=== PATIENT | male | born 1995 | race Caucasian/White ===

== ENCOUNTER 2025-01-13 21:06 | Emergency (ER) | payer OTHER, SELFPAY ==
[2025-01-13 21:07] VITALS: BP 156/98; PULSE 79; RESP 15; TEMP 36.4; O2SAT 97; BMI 25.9
[2025-01-13] MEDS: Lidocaine 2% Viscous15 ML UDC 15 ML PO (21:46)
--- OUTSIDE RECORDS SUMMARY | 2025-01-13 21:49 | XMS RPT_ITS | CCD ---
Author Organization [facility] Allergies Allergy Classification Reported Allergen(s) Allergy Type Date of Onset Reaction(s) Facility (1 source) Penicillin; Translations: [penicillins] Drug Allergy Nausea [facility] Medications Current Medications Medication Drug Class(es) Dates Sig (Normalized) Sig (Original) ibuprofen 200 mg oral tablet (1 source) Nonsteroidal Anti-inflammatory Drug Start: 03-25-2019 ibuprofen 200 mg oral tablet Dose : 400 mg = 2 tab(s), Oral, q6h, PRN for pain, Take with food or milk., 0 Refill(s) Start Date: 03/25/19 Status: Ordered Medication Dispense Status: Completed Total Allowed Fills: 1 Fills Dispensed: 0 Problems Problem Classification Problem Date Documented Da te Episodic/Chronic Asthma (1 source) Asthma 03-25-2019 Chronic Intracranial injury (1 source) 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 Other gastrointestinal disorders (1 source) Dysphagia; Translations: [Dysphagia, unspecified] Onset: 01-12-2025 Episodic Encounters Encounter Date Encounter Type Care Provider Facility Start: 01-12-2025 End: 01-12-2025 Emergency department patient visit JUNAID GALICIA MD [facility] Procedures Date Procedure Procedure Detail Performing Clinician Start: 05-22-2013 Esophagogastroduodenoscopy JUNAID GALICIA MD Comment on above: Won Sierra Start: 05-07-2012 [facility] JUNAID CELAYA MD Comment on above: EDF 60-65% Payers Date Payer Category Payer Private Health Insurance [id number] Social History Date Type Detail Facility Start: 03-25-2019 Tobacco smoking status Never s moked tobacco (finding) [facility] Sexual Orientation [facility] Start: 03-20-2013 Sex Male (finding) [facility] Discharge instructions 01-12-2025 Note Date & Type Note Facility 01-12-2025 Hospital Discharg e instructions Patient Education 01/12/2025 11:42:18 Treating Dysphagia Treating Dysphagia Blend foods to make them easier to eat. A medical evaluation helps your healthcare provider find the cause of your trouble swallowing, or dysphagia. Your evaluation may include a medical history and some special tests. Your provider will make a treatment plan based on the results of your evaluation. You may need to take medicines. In some cases, your provider may suggest a procedure to stretch or widen your esophagus (esophageal dilation). Or your provider may suggest surgery. What you can do To help control dysphagia, follow your treatment plan. Take all medicines as directed. You also can help lessen your dysphagia symptoms by being careful about what and how you eat. Medicines You may need medicines, such as those that: Reduce or neutralize stomach acids Control esophagus muscle spasms Treat an allergic disorder of the esophagus that is causing the problem Are injected into the esophagus to help symptoms Esophageal dilation Dilation is a procedure that your provider can use to widen your esophagus. It is most often done when a narrowing (stricture) of the esophagus is causing the problem. There are many ways your provider can widen your esophagus. He or she can discuss them with you. Eating tips Eat slowly in a relaxed setting. Don t talk while you eat. Take small bites and chew slowly and thoroughly Sit in an upright position during and after meals. Ask your provider about any special diets that may help, such as liquid diets. If you have trouble swallowing solid foods, you can use a police district switchboard operator to mash or pur e them. Thicken liquids with milk, juice, broth, gravy, or starch to make swallowing easier. Your healthcare provider may recommend that you have an evaluation or sessions with a speech or occupational therapist. These specialists in dysphagia may give you exercises and instructions to help you eat safely. [id number] [employer]. [address] [place] [address], [place] [address]. All rights reserved. This information is not intended as a substitute for professional medical care. Always follow your healthcare professional's instructions. Follow Up Care 01/12/2025 10:02:33 With:ELHAM SIERRA MD Address: [address] [facility] [address] [place] [address] [phone] When:1-2 days [facility] Clinical Note 01-12-2025 Note Date & Type Note Facility 01-12-2025 Note Discharge Instructions Thank you for allowing [facility] to assist you with your healthcare needs. The following is important discharge information regarding your hospital visit. Diagnosis from Today's Visit Dysphagia What to Do Next Instructions from Your Care Team No qualifying data available. Post Acute Orders No qualifying data available. You Need to Schedule the Following Appointments Follow Up with ELHAM SIERRA MD When:Within 1-2 days Where:[address] [facility] [address] [place] [address] [phone] Allergies penicillins Nausea Medications Please ask your primary doctor or pharmacist before taking any other medication not listed, including over the counter drugs, herbal medications, vitamins and or supplements as they may interact with your home medications. What How Much When Instructions Last Dose Unchanged ibuprofen (ibuprofen 200 mg oral tablet) 2 tab(s) by mouth Every 6 hours as needed for for pain Take with food or milk. Please take this list to your next doctor s visit. Bring all medications you take, including over the counter medications, herbals and other supplements with you to your doctor s visit. Patients and families are reminded to discard old lists and to update any records with all medication providers or retail pharmacies. Education Materials Treating Dysphagia Blend foods to make them easier to eat. A medical evaluation helps your healthcare provider find the cause of your trouble swallowing, or dysphagia. Your evaluation may include a medical history and some special tests. Your provider will make a treatment plan based on the results of your evaluation. You may need to take medicines. In some cases, your provider may suggest a procedure to stretch or widen your esophagus (esophageal dilation). Or your provider may suggest surgery. What you can do To help control dysphagia, follow your treatment plan. Take all medicines as directed. You also can help lessen your dysphagia symptoms by being careful about what and how you eat. Medicines You may need medicines, such as those that: Reduce or neutralize stomach acids Control esophagus muscle spasms Treat an allergic disorder of the esophagus that is causing the problem Are injected into the esophagus to help symptoms Esophageal dilation Dilation is a procedure that your provider can use to widen your esophagus. It is most often done when a narrowing (stricture) of the esophagus is causing the problem. There are many ways your provider can widen your esophagus. He or she can discuss them with you. Eating tips Eat slowly in a relaxed setting. Don t talk while you eat. Take small bites and chew slowly and thoroughly Sit in an upright position during and after meals. Ask your provider about any special diets that may help, such as liquid diets. If you have trouble swallowing solid foods, you can use a police district switchboard operator to mash or pur e them. Thicken liquids with milk, juice, broth, gravy, or starch to make swallowing easier. Your healthcare provider may recommend that you have an evaluation or sessions with a speech or occupational therapist. These specialists in dysphagia may give you exercises and instructions to help you eat safely. [id number] [employer]. [address] [place] [address]. All rights reserved. This information is not intended as a substitute for professional medical care. Always follow your healthcare professional's instructions. Additional Information VACCINATE! IT SAVES LIVES! Members of the community who have not yet received the COVID-19 vaccine and would like to receive it can visit one of [facility] vaccine clinics. There are many vaccine clinic locations within the [facility]. For locations and available times, please visit [email or web address]/. It is important to note that some COVID mobile vaccine clinics are held outdoors and may be canceled in rainy or stormy conditions. To learn more about pediatric vaccinations (ages 5-11), we invite you to visit the [facility] webpage. [email or web address]/[email or web address]-Frequently-[email or web address] -Questions.html To learn more about the COVID-19 vaccine, we invite you to visit the CDC website for a list of frequently asked questions. https://www.cdc.gov/coronavirus/2019-n cov/vaccines/faq.html [facility] Patient Portal Access Instructions: Stay connected with your healthcare team and access your personal medical information anytime with the [facility] Patient Portal. If you would like a full copy of your medical records please contact the [facility] Medical Records Department Wednesday through Wednesday between 8a.m. and 4:30p.m. Please follow the directions below to access the portal: 1.Access the email account you provided upon registration to the [facility].2.Look for an invitation email from [facility].3.Open the email and access the invitation link: Accept Invitation to [facility]4.Fill in the required perez to create your account. Sign into [email or web address] with your username and password that you created in the above steps to stay up to date. You can then view a summary of results, a summary of your visits, and the ability to download your summaries to your computer or send the information securely to a physician. Remember that your healthcare information is confidential, so carefully consider who you will allow to register on the [facility] Patient Portal for access to your information. You can also access the [facility] Patient Portal on the [employer]. Simply click on Health Records under Health Data and then click on the [employer] logo. HOW TO SAFELY DISPOSE OF PRESCRIPTION MEDICATIONS Please use one of the following methods to safely dispose of your unused medications. 1.Use a drug disposal kit: the drug disposal pouch allows you to safely discard your old and unused drugs. Ask your nurse to give you one when you are discharged.2.Visit a local take-back location: Many local pharmacies and police departments have programs that collect old and unwanted prescription drugs. Call your local pharmacy or go to http://bit.Stepcase/6O7Ar7p to find one close to you.3.Make use of household items: Use cat litter or old coffee grounds to dispose medications if other options are not available. Mix your drugs with these household products, seal them in an airtight container and throw it into the garbage. Call [facility]: [phone] to be sure your drugs can be disposed of in this way. Some medicines may require a different approach.4.Never flush your medications down the toilet. IF YOU HAVE BEEN PRESCRIBED AN OPIOIDS FOR PAIN If you have been prescribed an opioid (such as hydrocodone, oxycodone or morphine), it is critical to understand the possible side effects and risks of opioid pain medications. Even when taken as directed, opioids can have several side effects including: Tolerance, meaning you might need to take more of a medication for the same pain relief. Nausea, vomiting and/or constipation. Sleepiness, dizziness, dry mouth, confusion, depression or itching. Physical dependence, meaning you have withdrawal symptoms when a medication is stopped ? this can develop within a few days. KNOW YOUR RESPONSIBILITIES It is important to know exactly how much and how often to take the opioid pain medications you are prescribed. Never take opioids in higher amounts or more often than prescribed. Do not combine opioids with alcohol or other drugs that cause drowsiness, such as benzodiazepines, also known as benzos, including diazepam and alprazolam, muscle relaxants or sleep aids. Never sell or share prescription opioids. This is illegal. Store opioids in a secure place and out of reach of others (including children, family, friends and visitors). The last page(s) of this document has been signed and retained as a CHART COPY Signatures Patient Education Materials Treating Dysphagia Medication Leaflets My discharge plan and instructions have been reviewed and explained to me and I,RICHY ZUNIGA understand my current condition and have read and understand these discharge instructions. I have received a written copy of the plan/instructions. If I have questions, I am aware that I should contact my doctor. 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 This clinical summary was aggregated from multiple sources. Caution should be exercised in using it in the provision of clinical care. This summary normalizes information from multiple sources, and as a consequence, information in this document may materially change the coding, format and clinical context of patient data. In addition, data may be omitted in some cases. CLINICAL DECISIONS SHOULD BE BASED ON THE PRIMARY CLINICAL RECORDS. [facility] [facility]. provides no warranty or guarantee of the accuracy or completeness of information in this document.
--- NOTE | 2025-01-13 22:43 | EDS_ITS ---
HPI HPI - GI History of Present Illness Chief Complaint: Foreign Body Informant: patient Narrative Narrative: Patient is a 29-year-old male with history of esophageal dilation remotely (greater than 10 years ago) presenting with continued foreign body sensation in his esophagus. He states on , 2 days ago he was eating chicken pot pie for lunch. He felt like it got stuck going down. He eventually got it up by coughing/throwing it up and laying on his stomach but has continued to feel like there is something in there and had a hard time drinking. Does not try to eat anything. He only can take sips of drinks without feeling something skin stuck. He would then belch to then feel like the liquids going down. He went to [facility] yesterday where he received Zofran and injection what sounds like glucagon. He states he was able to drink elly nazario. He is continued to feel however that he is not able to swallow things and has not even tried to eat food. He states if he tries even drink something thicker such as a milk today he has to drink sips of water to help her get down. He has not been throwing up but sometimes does feel like he regurgitates sometimes but not proportional to the amount that he swallowed. Denies any other symptoms or complaints at this time. Denies any black or blood in stool. Denies any change with his urination. Feels that he is lost about 10 pounds this last few days because he is not been able to eat. [facility] Medical History History of esophageal dilatation Home Medications ?Medication ?Instructions ?Recorded ?Last Taken ?Type NK 01/13/25 Unknown History pantoprazole 20 mg tablet,delayed 20 mg PO DAILY #14 t abs 01/13/25 Unknown Rx release (Protonix) Allergy/AdvReac Type Severity Reaction Status Date / Time Penicillins Allergy Mild Nausea/Vom/ Verified 01/13/25 21:06 Diarrhea Family History no significant family his Surgical History no surgical history Social History Smoking Status: Never smoker ROS ROS ED Constitutional Constitutional ED: Denies chills or fever(s) Cardiovascular Cardiovascular: Denies chest pain Respiratory/Chest Respiratory/Chest: Denies cough or dyspnea Gastrointestinal Gastrointestinal: Denies abdominal pain, nausea or vomiting Integumentary Denies rash EXAM Physical Exam Const Vital Signs: 01/13/25 21:07 01/13/25 21:12 Temperature 97.6 F L Temperature Source Temporal Pulse Rate 79 Respiratory Rate 15 Respiratory Effort Normal Respiratory Pattern Normal Blood Pressure 156/98 H Blood Pressure Mean 117 Pulse Ox 97 Oxygen Delivery Method Room Air Positive well nourished and well developed General Appearance ED: well developed and NAD; Negative for pallor HEENT Reports moist mucous membranes Neck supple and no JVD Chest Wall Chest Narrative: No chest wall crepitus. No chest wall tenderness to palpation Resp normal respiratory effort and clear to auscultation bilaterally Cardio regular rate and regular rhythm GI non-tender and non-distended Inspection: Negative for abdominal distention Auscultation: normoactive bowel sounds Palpation: soft; Negative for tender or guarding Psych mental status grossly normal and thought process normal Skin General Skin Exam: Negative for jaundice or pallor MDM MDM MDM Narrative Medical decision making narrative: Patient evaluated for sensation of food stuck in his esophagus and having a hard time drinking little on eating. He was seen at [facility] yesterday where he was treated with glucagon and was able to tolerate p.o. challenge. Was discharged home. States he has continued to feeling something stuck in there and that he is not having any pain. He feels like if he does not take small sips things do not go down. He is not having true obstruction symptoms however is not really vomiting. He does not clinically appear dehydrated. Differential includes globus hystericus, esophagitis, esophageal stricture and partial obstruction. Patient is given GI cocktail which he keeps down but does feel bad when he is trying to swallow it. He is unable to drink a full glass of water. Discussed w ith him I do not have criteria for emergent endoscopy. Will start him on PPI therapy and give first dose in the emergency room. Will arrange for close outpatient GI follow-up with [facility] I do think he needs scoped urgently but I do not think he needs to come into the hospital for this or have an emergent scope given that he is able to tolerate liquids. Counseled that he can stick to liquid/soft diet. Discussed that if he can eat or drink something thicker and with water it goes down and he is not throwing it up that that is satisfactory for the short-term. Is given return precautions. At this time he is comfortable treating this conservatively. Discussed that the other option would be transfer to have him scoped this weekend however we do not have GI on-call right now we cannot keep him here for that reason. He is given return precautions. Discharged home in stable condition. Given first dose of pantoprazole in the emergency room Discharge Plan Triage Chief Complaint: Foreign Body ED Provider: Carolin Hoyos Dx/Rx/DC Orders Instructions: ED Soft Diet, ED Esophageal Foreign Body, Resolved Prescriptions: New pantoprazole [Protonix] 20 mg tablet,delayed release (DR/EC) 20 mg PO DAILY Qty: 14 0RF No Action NK Primary Care Provider: Care Physician,No Primary Referrals: Mahin Arteaga DO [Med Staff - Active Staff] - Care Physician,No Primary [Primary Care Provider] - Activity Restrictions/Additional Instructions: Follow-up with the GI specialist as scheduled. Continue to push fluids and drink protein shakes. Advance her diet as tolerated. If you are not able to keep fluids down, develop fever or severe pain/further concerns please do not hesitate to return to the emergency room. Print Language: Danish Disposition Disposition: Home, Self Care
[2025-01-13 22:50] VITALS: BP 133/102; PULSE 76; RESP 16; TEMP 36.4; O2SAT 96
== END 2025-01-13 22:59 | disposition home or self-care (01) ==
PROVIDERS: Emergency Provider Emergency Medicine; Visit Provider Emergency Medicine
DX: R09.A2 Foreign body sensation, throat (principal)
CPT/HCPCS: 99283

== ENCOUNTER 2025-01-19 06:20 | Day surgery (SDC) | payer OTHER, SELFPAY ==
[2025-01-19] VITALS (8 sets, daily range): BP systolic 112–129; BP diastolic 55–97; PULSE 62–97; RESP 14–18; TEMP 36.3–36.5; O2SAT 91–99; BMI 25.1
--- OUTSIDE RECORDS SUMMARY | 2025-01-19 06:23 | XMS RPT_ITS | CCD ---
Author Organization [facility] Care Team Providers Care Drafter Electronic Name Role Phone Care Physician, No Primary Primary Care Provider Unavailable Dr. Carolin Hoyos DO Emergency Provider FRIDA BANG, JUNAID Singletary Attending Unavail able Care Physician, No Primary Referring Provider Un available Amy Dover Attending Provider Amy Soriano Attending Unavailable Care Physician, No Primary Primary Care Unava ilable Care Physician, No Primary Referring Unava ilable Care Physician, No Primary Primary Care Unava ilable Carolin Hoyos Attending Unavailable Care Physician, No Primary Primary Care Unava ilable Care Physician, No Primary Referring Unava ilable Mahin Arteaga Attending Unavailable Allergies Allergy Classification Reported Allergen(s) Allergy Type Date of Onset Reaction(s) Facility (1 source) Penicillin; Translations: [penicillins] Drug Allergy Nausea [facility] (2 sources) Penicillins Allergy to substance 5 Nausea/Vom/Diar [facility] (1 source) Penicillins Drug allergy (disorder) [address] [place] [address] Repository Medications Current Medications Medication Drug Class(es) Dates Sig (Normalized) Sig (Original) ibuprofen 200 mg oral tablet (1 source) Nonsteroidal Anti-inflammatory Drug Start: 03-25-2019 ibuprofen 200 mg oral tablet Dose : 400 mg = 2 tab(s), Oral, q6h, PRN for pain, Take with food or milk., 0 Refill(s) Start Date: 03/25/19 Status: Ordered Medication Dispense Status: Completed Total Allowed Fills: 1 Fills Dispensed: 0 Becenti (Nk) (2 sources) Start: 01-13-2025 Becenti (Nk) Active January 13, 2025 12:00am Completed/Discontinued Medications Medication Drug Class(es) Dates Sig (Normalized) Sig (Original) pantoprazole 20 mg delayed release oral tablet (2 sources) Proton Pump Inhibitor Start: 01-13-2025 End: 01-16-2025 take 1 tablet by mouth once daily Pantoprazole (Protonix) 20 mg tablet,delayed release (DR/EC) Discontinued 20 mg PO DAILY 14 0 January 13, 2025 12:00am January 16, 2025 11:40am Problems Problem Classification Problem Date Documented Da te Episodic/Chronic Asthma (1 source) Asthma 03-25-2019 Chronic Intracranial injury (1 source) 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 Other gastrointestinal disorders (1 source) Dysphagia; Translations: [Dysphagia, unspecified] Onset: 01-12-2025 Episodic Other gastrointestinal disorders (2 sources) Difficulty swallowing fluid; Translations: [Dysphagia, unspecified] 01-13-2025 Episodic Other gastrointestinal disorders (2 sources) Dysphagia, unspecified; Translations: [Dysphagia, unspecified] Onset: 01-12-2025 Episodic Residual codes; unclassified (2 sources) Past history of procedure; Translations: [Other specified postprocedural states] 01-13-2025 Episodic Residual codes; unclassified (1 source) Other specified postprocedural states; Translations: [Other specified postprocedural states] Onset: 01-17-2025 Episodic Unclassified (1 source) Foreign body sensation, throat; Translations: [Foreign body sensation, throat] Onset: 01-18-2025 Results Test Name Value Interpretation Reference Range Facility Gastroenterology Visit Repor ton 01-16-[address] [facility] [address] [place] [address] OFFICE VISIT Date of Service: 01/16/25 MR#: [id number] Acct: [id number] Name: NINARICHY MCKEON Dave Rep #: [id number] : 1995 Provider: CHARLEY lopez Age/Sex: 29/M Location: [facility] [place] Status: Signed Intake Vital Signs 01/13/25 21:07 01/16/25 11:43 Height 6 ft 6 ft Weight: 189 lb 2 oz BMI 25.6 BP 133/89 H Respiration 16 Pulse 78 Temp 98.2 F Temp Source Temporal Pulse Oximetry (%) 97 Oxygen Delivery Method room air Intake Visit Reasons: Referral from ED Chief Complaint: trouble swallowing Air Box Tester Required: No Accompanied by: Self Is patient in pain?: No Allergies Penicillins Allergy (Mild, Verified 01/16/25 11:41) Nausea/Vom/Diarrhea Medications ???Medication ???Instructions ???Recorded ???Confirmed ???Type NK 01/13/25 01/16/25 History PFSH Medical History (Updated 01/16/25 @ 12:27 by CHARLEY Olivas) Asthma History of esophageal dilatation Social History Smoking Status: Never smoker HPI HPI Chief Complaint: trouble swallowing Details: ER 01/14/2025 - Swapnil Patient evaluated for sensation of food stuck in his esophagus and having a hard time drinking little on eating. He was seen at [facility] yesterday where he was treated with glucagon and was able to tolerate p.o. challenge. Was discharged home. States he has continued to feeling something stuck in there and that he is not having any pain. He feels like if he does not take small sips things do not go down. He is not having true obstruction symptoms however is not really vomiting. He does not clinically appear dehydrated. Differential includes globus hystericus, esophagitis, esophageal stricture and partial obstruction. Patient is given GI cocktail which he keeps down but does feel bad when he is trying to swallow it. He is unable to drink a full glass of water. Discussed with him I do not have criteria for emergent endoscopy. Will start him on PPI therapy and give first dose in the emergency room. Will arrange for close outpatient GI follow-up with Dr. Arteaga's I do think he needs scoped urgently but I do not think he needs to come into the hospital for this or have an emergent scope given that he is able to tolerate liquids. Counseled that he can stick to liquid/soft diet. Discussed that if he can eat or drink something thicker and with water it goes down and he is not throwing it up that that is satisfactory for the short-term. Is given return precautions. At this time he is comfortable treating this conservatively. Discussed that the other option would be transfer to have him scoped this weekend however we do not have GI on-call right now we cannot keep him here for that reason. He is given return precautions. Discharged home in stable condition. Given first dose of pantoprazole in the emergency room. - Last food got stuck, eventually passed and then had trouble drinking water - Wednesday seen in [facility] ER - glucagon relaxed and liquids went down - then the following day (Wednesday) seen in [facility] - things were going down but super slow, felt like he had to belch to get it to go down - has had food stuck before - EGD x2 in the past about 12 years ago - thinks he has heard the term eosinophilic esophagitis previously - does not get reflux often, feels a tiny bit the past week or so - denies any heart or lung disease - denies any kidney disease - he has a history Asthma - denies any h/o of eczema - denies any family h/o esophageal or gastric cancer - reports his brother has same issues he does - weight loss, due to not eating solid foods since last - denies taking any NSAIDS - 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 - last solid food was this past - last had liquids 2 hours ago - 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 Const Constitutional: No fatigue, fever(s) or weight change ENT ENT: Positive for difficulty swallowing Gastro GI: Positive for bloating, heartburn and difficulty swallowing; No abdominal pain, belching, change in bowel habits, change in stool character, coffee ground emesis, constipation, cramping, diarrhea, feeling full early, excessive flatus, incontinent of stools, Vomiting blood/hematemesis, Blood in stool, loose stools, Black,tarry stools, nausea/dyspepsia, pain with swallowing, vomiting or other Musc Musculoskeletal: No joint pain Skin Skin: No yellowing of the eye or itchy eyes Psych Psychiatric: No anxiety and No depression Endo Endocrine: No fatigue or weight change Aller/Imm Allergy/Immunologic: No itchy eyes Efrain/Lymp Hematologic/Lymphatic : No easy bleeding or easy bruising Exam Const General: (more content not included)... Normal [facility] Emergency Department Summary on 01-13-2025 Emergency Department Summary [facility] Medical Records Department [address] [place] [address] Emergency Department Summary 01/13/25 MR#: [id number] Acct: [id number] Name: RICHY ZUNIGA Rep #: [id number] : 1995 29 From: Carolin Hoyos DO PCP: Care Physician,No Primary Status:DEP ER Location: ED HPI HPI - GI History of Present Illness Chief Complaint: Foreign Body Informant: patient Narrative Narrative: Patient is a 29-year-old male with history of esophageal dilation remotely (greater than 10 years ago) presenting with continued foreign body sensation in his esophagus. He states on , 2 days ago he was eating chicken pot pie for lunch. He felt like it got stuck going down. He eventually got it up by coughing/throwing it up and laying on his stomach but has continued to feel like there is something in there and had a hard time drinking. Does not try to eat anything. He only can take sips of drinks without feeling something skin stuck. He would then belch to then feel like the liquids going down. He went to [facility] yesterday where he received Zofran and injection what sounds like glucagon. He states he was able to drink elly nazario. He is continued to feel however that he is not able to swallow things and has not even tried to eat food. He states if he tries even drink something thicker such as a milk today he has to drink sips of water to help her get down. He has not been throwing up but sometimes does feel like he regurgitates sometimes but not proportional to the amount that he swallowed. Denies any other symptoms or complaints at this time. Denies any black or blood in stool. Denies any change with his urination. Feels that he is lost about 10 pounds this last few days because he is not been able to eat. [facility] Medical History History of esophageal dilatation Home Medications ???Medication ???Instructions ???Recorded ???Last Taken ???Type NK 01/13/25 Unknown History pantoprazole 20 mg tablet,delayed 20 mg PO DAILY #14 tabs 01/13/25 Unknown Rx release (Protonix) Allergy/AdvReac Type Severity Reaction Status Date / Time Penicillins Allergy Mild Nausea/Vom/ Verified 01/13/25 21:06 Diarrhea Family History no significant family his Surgical History no surgical history Social History Smoking Status: Never smoker ROS ROS ED Constitutional Constitutional ED: Denies chills or fever(s) Cardiovascular Cardiovascular: Denies chest pain Respiratory/Chest Respiratory/Chest: Denies cough or dyspnea Gastrointestinal Gastrointestinal: Denies abdominal pain, nausea or vomiting Integumentary Denies rash EXAM Physical Exam Const Vital Signs: 01/13/25 21:07 01/13/25 21:12 Temperature 97.6 F L Temperature Source Temporal Pulse Rate 79 Respiratory Rate 15 Respiratory Effort Normal Respiratory Pattern Normal Blood Pressure 156/98 H Blood Pressure Mean 117 Pulse Ox 97 Oxygen Delivery Method Room Air Positive well nourished and well developed General Appearance ED: well developed and NAD; Negative for pallor HEENT Reports moist mucous membranes Neck supple and no JVD Chest Wall Chest Narrative: No chest wall crepitus. No chest wall tenderness to palpation Resp normal respiratory effort and clear to auscultation bilaterally Cardio regular rate and regular rhythm GI non-tender and non-distended Inspection: Negative for abdominal distention Auscultation: normoactive bowel sounds Palpation: soft; Negative for tender or guarding Psych mental status grossly normal and thought process normal Skin General Skin Exam: Negative for jaundice or pallor MDM MDM MDM Narrative Medical decision making narrative: Patient evaluated for sensation of food stuck in his esophagus and having a hard time drinking little on eating. He was seen at [facility] yesterday where he was treated with glucagon and was able to tolerate p.o. challenge. Was discharged home. States he has continued to feeling something stuck in there and that he is not having any pain. He feels like if he does not take small sips things do not go down. He is not having true obstruction symptoms however is not really vomiting. He does not clinically appear dehydrated. Differential includes globus hystericus, esophagitis, esophageal stricture and partial obstruction. Patient is given GI cocktail which he keeps down but does feel bad when he is trying to swallow it. He is unable to drink a full glass of water. Discussed with him I do not have criteria for emergent endoscopy. Will start him on PPI therapy and give first dose in the emergency room. Will arrange for close outpatient GI follow-up with (more content not included)... Normal [facility] Vital Signs Date Time Vital Sign Value Performing Clinician Bruce rios 01-16-2025 11:43-0400 Body height 182.88 cm No Primary Care Physician [facility] 01-16-2025 11:43-0400 Body mass index (BMI) [Ratio] 25.6 kg/m2 No Primary Care Physician [facility] 01-16-2025 11:43-0400 Body temperature 98.2 [degF] No Primary Care Physician [facility] 01-16-2025 11:43-0400 Body weight 85.78 kg No Primary Care Physician [facility] 01-16-2025 11:43-0400 Diastolic blood pressure 89 mm[Hg] No Primary Care Physician [facility] 01-16-2025 11:43-0400 Heart rate 78 /min No Primary Care Physician [facility] 01-16-2025 11:43-0400 Respiratory rate 16 /min No Primary Care Physician [facility] 01-16-2025 11:43-0400 SaO2% (BldA) [Mass fraction] 97 % No Primary Care Physician [facility] 01-16-2025 11:43-0400 Systolic blood pressure 133 mm[Hg] No Primary Care Physician [facility] 01-13-2025 22:50-0400 Body temperature 97.6 [degF] No Primary Care Physician [facility] 01-13-2025 22:50-0400 Diastolic blood pressure 102 mm[Hg] No Primary Care Physician [facility] 01-13-2025 22:50-0400 Heart rate 76 /min No Primary Care Physician [facility] 01-13-2025 22:50-0400 Respiratory rate 16 /min No Primary Care Physician [facility] 01-13-2025 22:50-0400 SaO2% (BldA) [Mass fraction] 96 % No Primary Care Physician [facility] 01-13-2025 22:50-0400 Systolic blood pressure 133 mm[Hg] No Primary Care Physician [facility] 01-13-2025 21:07-0400 Body height 182.88 cm No Primary Care Physician [facility] 01-13-2025 21:07-0400 Body mass index (BMI) [Ratio] 25.9 kg/m2 No Primary Care Physician [facility] 01-13-2025 21:070400 Body weight 87 kg No Primary Care Physician [facility] Encounters Encounter Date Encounter Type Care Provider Facility Start: 01-19-2025 ambulatory No Primary Car e Physician Facility:[facility] Start: 01-16-2025 End: 01-16-2025 Patient encounter procedure Amy MOONC -[facility] Work Phone: Start: 01-16-2025 End: 01-16-2025 ambulatory No Primary Care Physician -[facility] Start: 01-13-2025 End: 01-13-2025 Emergency department patient visit No Primary Care Physician -Emergency Department Work Phone: Start: 01-12-2025 End: 01-12-2025 Emergency department patient visit JUNAID GALICIA MD [facility] Procedures Date Procedure Procedure Detail Performing Clinician Start: 05-22-2013 Esophagogastroduodenoscopy JUNAID GALICIA MD Comment on above: [facility]-Dr. Arana Start: 05-07-2012 Echocardiography JUNAID CELAYA MD Comment on above: EDF 60-65% Plan of Treatment Date Care Activity Detail Author Start: 01-13-2025 End: 01-13-2025 [facility] Patient Education ED Soft Diet E D Esophageal Foreign Body, Resolved [facility] Work Phone: Payers Date Payer Category Payer Self-pay 2025 Unknown [id number] 2025 Unknown [id number] 2018 Private Health Insurance [id number] 1995 Unknown [id number] Unknown [id number] Unknown [id number] Unknown [id number] Social History Date Type Detail Facility Start: 03-25-2019 End: 01-16-2025 Tobacco smoking status Never smoked tobacco (finding) [facility] Sexual Orientation [facility] Start: 03-20-2013 Sex Male (finding) [facility] Start: 1995 Sex Assigned At Male [facility] Mental Status Date Assessment Result Facility 01-13-2025 Cognitive function Level Of Cons ciousness Awake;Alert;Appropriate;Follow s Commands [facility] Work Phone: Chief complaint+Reason for visit Narrative 01-13-2025 Note Date & Type Note Facility 01-13-2025 Chief complaint+R isabel for visit Narrative [facility] January 13, 2025 9: 06pm Referral from ED January 16, 2025 11:32am [facility] Work Phone: Hospital Discharge instructions 01-12-2025 Note Date & [...] swallowing solid foods, you can use a electrical research engineer to mash or pur e them. Thicken liquids with milk, juice, broth, gravy, or starch to make swallowing easier. Your healthcare provider may recommend that you have an evaluation or sessions with a speech or occupational therapist. These specialists in dysphagia may give you exercises and instructions to help you eat safely. [id number] [employer]. [address] [place] [address]. All rights reserved. This information is not intended as a substitute for professional medical care. Always follow your healthcare professional's instructions. Follow Up Care 01/12/2025 10:02:33 With:ELHAM ARANA MD Address: [address] [address]- [phone] When:1-2 days [facility] Clinical Note 01-12-2025 Note Date & Type Note Facility 01-12-2025 Note Discharge Instructions Thank you for allowing [facility] to assist you with your healthcare needs. The following is important discharge information regarding your hospital visit. Diagnosis from Today's Visit Dysphagia What to Do Next Instructions from Your Care Team No qualifying data available. Post Acute Orders No qualifying data available. You Need to Schedule the Following Appointments Follow Up with ELHAM ARANA MD When:Within 1-2 days Where:[address] [facility] [address] [place] [address] [phone] Allergies penicillins Nausea Medications Please ask your [...] swallowing solid foods, you can use a electrical research engineer to mash or pur e them. Thicken liquids with milk, juice, broth, gravy, or starch to make swallowing easier. Your healthcare provider may recommend that you have an evaluation or sessions with a speech or occupational therapist. These specialists in dysphagia may give you exercises and instructions to help you eat safely. [id number] [employer] [address] [place] [address], [place] [address]. All rights reserved. This information is not intended as a substitute for professional medical care. Always follow your healthcare professional's instructions. Additional Information VACCINATE! IT SAVES LIVES! Members of the community who have not yet received the COVID-19 vaccine and would like to receive it can visit one of [facility] vaccine clinics. There are many vaccine clinic locations within the State. For locations and available times, please visit www.gettheshot.coronavirus.[place].gov/. It is important to note that some COVID mobile vaccine clinics are held outdoors and may be canceled in rainy or stormy conditions. To learn more about pediatric vaccinations (ages 5-11), we invite you to visit the [facility] webpage. [email or web address]/pages/[email or web address]-Yykqk-Hfhgpyaxajx-Frequently-[email or web address] -Questions.html To learn more about the COVID-19 vaccine, we invite you to visit the CDC website for a list of frequently asked questions. https://www.cdc.gov/coronavirus/2019-n cov/vaccines/faq.html [facility] Patient Portal Access Instructions: Stay connected with your healthcare team and access your personal medical information anytime with the [facility] Patient Portal. If you would like a full copy of your medical records please contact the [facility] Medical Records Department Wednesday through Wednesday between 8a.m. and 4:30p.m. Please follow the directions below to access the portal: 1.Access the email account you provided upon registration to the hospital.2.Look for an invitation email from [facility].3.Open the email and access the invitation link: Accept Invitation to [facility]4.Fill in the required perze to create your account. Sign into [email or web address] with your username and password that you [...] you will allow to register on the [facility] Patient Portal for access to your information. You can also access the [facility] Patient Portal on the [employer] hortencia. Simply click on Health Records under Health Data and then click on the [employer] logo. HOW TO SAFELY DISPOSE OF PRESCRIPTION [...] Call your local pharmacy or go to [email or web address] to find one close to you.3.Make use of household items: Use cat litter or old coffee grounds to dispose medications if other options are not available. Mix your drugs with these household products, seal them in an airtight container and throw it into the garbage. Call [facility]: [phone] to be sure your drugs can be [...] been reviewed and explained to me and IEFRAIN KORIE J understand my current condition and have read and understand these discharge instructions. I have received a written copy of the plan/instructions. If I have questions, I am aware that I should contact my doctor. Patient/Intelligence Operations Specialist Signature: _ Date/Time: Relationship to Patient: Witness Name/Signature: Date/Time: [facility] Evaluation + Plan note Note Date & Type Note Facility Evaluation + Plan note No data available for this section [facility] Evaluation note Note Date & Type Note Facility Evaluation note No assessment information availa ble [facility] Work Phone: Hospital Discharge instructions Note Date & Type Note Facility Hospital Discharge instructions Additional Instructions Follow-up with the GI specialist as scheduled. Continue to push fluids and drink protein shakes. Advance her diet as tolerated. If you are not able to keep fluids down, develop fever or severe pain/further concerns please do not hesitate to return to the emergency room. [facility] Work Phone: Reason for referral (narrative) Note Date & Type Note Facility Reason for referral (narrative) No reason for referral information available [facility] Work Phone: Chief Complaint and Reason for Visit Chief Complaint Admit Date FOREIGN BODY January 13, 2025 9: 06pm Advance Directives No Advanced Directives Records Found Advance Directive Response Recorded Date/ Time Do you have a Healthcare Power of Paint Roller Winder? No January 13, 2025 9:12pm Summary Purpose Family History No Family History Records Found Additional Source Comments Patient Care team informatio n (unrecognized section and content) Team Status: Active Member Role/Relationship Status Dates No Primary Care Physician Primary Care Provider Active Team Status: Inactive Member Role/Relationship Status Dates No Primary Care Physician Primary Care Provider Active Start: January 13, 2025 End: January 13, 2025 Dr. Carolin Hoyos , Emergency Provider Active Start: January 13, 2025 End: January 13, 2025 Team Status: Inactive Member Role/Relationship Status Dates No Primary Care Physician Primary Care Provider Active Start: January 16, 2025 End: January 16, 2025 No Primary Care Physician Referring Provider Active Start: January 16, 2025 End: January 16, 2025 CHARLEY Olivas Attending Provider Active Start: January 16, 2025 End: January 16, 2025 Goals (unrecognized section and content) Goals may be documented in a n alternate section (unrecognized sect ion and content) No Status Records FoundNo Status Records Found INFORMATION SOURCE (unrecogn ized section and content) DATE CREATED AUTHOR 01/14/2025 [facility] DATE CREATED AUTHOR AUTHOR'S JEANETTEIZ ATION 01/18/2025 [facility] FOR RECORDS PERTAINING TO PATIENTS WHO ARE [...] BE BASED ON THE PRIMARY CLINICAL RECORDS. [employer] provides no warranty or guarantee of the accuracy or completeness of information in this document.
[2025-01-19] MEDS: Lactated Ringers 1,000 ML 15 ML IV (06:52)
--- NOTE | 2025-01-19 07:06 | PCM.PRE.AN2 ---
ASA Classification* ASA Classification ASA Classification: 1 Assessment & Plan Anesthesia* Anesthesia Assessment Anesthesia Assessment: Discussed sedation and/or anesthesia options, risks, benefits, and alternatives with patient/parents/legal guardian/POA. Questions invited. The patient/parents/legal guardian/POA seems to understand and agrees to proceed with anesthesia plan. Reviewed the physical assessment, medical history, allergy history and patient home medications list prior to surgery/procedure/anesthetic and documented any changes. Performed airway and anesthesia risk assessments. Anesthesia Type Anesthesia Type: MAC History Source History Obtained from:: Patient and Chart Anesthesia Focused Assessment* Temperature: 97.3 F Pulse Rate: 62 Blood Pressure: 129/85 Respiratory Rate: 14 Pulse Ox: 99 Oxygen Delivery Method: Room Air Airway Assessment Mouth opens: >3 cm Mallampati Score: I Teeth Condition: Intact Neck Range of motion (ROM): Full ROM Labs Anesthesia Preop lab: CBC CHEMISTRY COAG Pre-Assessment Diagnosis/Proposed Procedure Planned Operative Procedure(s): EGD Anesthesia History Anesthesia History - sustainability consultant: Anesthesia History - sustainability consultant Hx Hospitalization No 01/17/25 11:39 Any Problems With Anesthesia No 01/17/25 11:39 Cholinesterase deficiency No 01/17/25 11:39 You/Your Family Experience No 01/17/25 11:39 fever (hyperthermia) with Relationship Recent Exposure to Contagious No 01/19/25 06:45 Disease Does patient have nerve No 01/17/25 11:39 stimulator Patient instructed to have device shut off --Does patient have Pacemaker No 01/19/25 06:45 or ICD? When Was Last Pacemaker Check QUESTION #4 FULL TEXT: You/Your Family Experience fever (hyperthermia) with Anesthesia Last Oral Intake Last Oral intake: Last Oral Intake NPO since 00:00 01/19/25 06:45 Meds taken in AM with sips of water? Meds patient instructed to take am of surgery Any additional information?: Yes NPO since: 05:30 (Patient had water at 5:30 AM. ) Meds taken in AM with sips of water?: No PONV PONV - sustainability consultant: PONV - sustainability consultant Female No 01/17/25 11:39 HX of Motion Sickness No 01/17/25 11:39 HX of N/V After Surgery No 01/17/25 11:39 Non-Smoker Yes 01/17/25 11:39 Duration of Surgery greater No 01/17/25 11:39 than 60 minutes Number of Risk Factors 1 01/17/25 11:39 PONV Score Low Risk 01/17/25 11:39 Height & Weight Height & Weight: Anesthesia: Height & Weight Height 6 ft 01/19/25 06:45 Weight: 84 kg 01/19/25 06:45 Body Mass Index (BMI) 25.1 01/19/25 06:45 Respiratory Assessment Respiratory Assessment - sustainability consultant: Respiratory Tract Infection Hx - sustainability consultant Hx Respiratory Tract Infection No 01/17/25 11:39 STOP Sleep Apnea STOP Sleep Apnea - sustainability consultant: STOP Sleep Apnea - sustainability consultant Hx Hypertension No 01/17/25 11:39 Hx Sleep Apnea No 01/17/25 11:39 CPAP BIPAP Do you snore loudly (louder No 01/17/25 11:39 than talking or can be heard Do you often feel tired/ No 01/17/25 11:39 fatigued/ sleepy during daytime? Has anyone observed you stop No 01/17/25 11:39 breathing during sleep? STOP Results Negative 01/17/25 11:39 QUESTION #5 FULL TEXT : Do you snore loudly (louder than talking or can be heard through closed doors)? 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 Specify any problems Hx of Preganancy in last 3 N/A 01/17/25 11:39 Months Nurse Filling Out Transfusion [email or web address] 01/17/25 11:39 & Questions: Date: 01/17/25 01/17/25 11:39 Time: 11:41 01/17/25 11:39 Patient unable to answer at this time (ie. confused, unrespo /Reproduction History /Reproductive History - sustainability consultant: /Reproductive Hx- sustainability consultant Hx Now Gestational Age (in weeks): EDC: Hx Hx Para Hx Section SAB Active Medications Active Medications: Current Medications Generic Name Dose Route Start Last Admin Trade Name Freq PRN Reason Stop Dose Admin Lactated Ringer's 1,000 mls @ 15 mls/hr 01/19/25 06:30 01/19/25 06:52 IV 15 mls/hr .Q48H ALEJANDRO Administration PFSH Medical History Asthma History of esophageal dilatation Home Medications ?Medication ?Instructions ?Recorded ?Last Taken ?Type pantoprazole 20 mg tablet,delayed 20 mg PO DAILY 01/17/25 01/18/25 History release Allergy/AdvReac Type Severity Reaction Status Date / Time Penicillins Allergy Mild Nausea/Vom/ Verified 01/19/25 06:45 Diarrhea Surgical History H/O esophagogastroduodenoscopy Social History Smoking Status: Never smoker Review of Systems (Anesthesia) ROS Narrative System reviewed and no additional complaints, except as documented.
--- NOTE | 2025-01-19 07:16 | HP.PCM_ITS ---
HPI - General General Date of Admission: 01/19/25 Date of Service: 01/19/25 Chief Complaint: dysphagia HPI Narrative RICHY ZUNIGA, is a 29 M who presents Chief Complaint: trouble swallowing Details: ER 01/14/2025 - [place] Patient evaluated for sensation of food stuck in his esophagus and having a hard time drinking little on eating. He was seen at [facility] yesterday where he was treated with glucagon and was able to tolerate p.o. challenge. Was discharged home. States he has continued to feeling something stuck in there and that he is not having any pain. He feels like if he does not take small sips things do not go down. He is not having true obstruction symptoms however is not really vomiting. He does not clinically appear dehydrated. Differential includes globus hystericus, esophagitis, esophageal stricture and partial obstruction. Patient is given GI cocktail which he keeps down but does feel bad when he is trying to swallow it. He is unable to drink a full glass of water. Discussed with him I do not have criteria for emergent endoscopy. Will start him on PPI therapy and give first dose in the emergency room. Will arrange for close outpatient GI follow-up with Dr. Kumar I do think he needs scoped urgently but I do not think he needs to come into the hospital for this or have an emergent scope given that he is able to tolerate liquids. Counseled that he can stick to liquid/soft diet. Discussed that if he can eat or drink something thicker and with water it goes down and he is not throwing it up that that is satisfactory for the short-term. Is given return precautions. At this time he is comfortable treating this conservatively. Discussed that the other option would be transfer to have him scoped this weekend however we do not have GI on-call right now we cannot keep him here for that reason. He is given return precautions. Discharged home in stable condition. Given first dose of pantoprazole in the emergency room. - Last food got stuck, eventually passed and then had trouble drinking water - Wednesday seen in [facility] ER - glucagon relaxed and liquids went down - then the following day (Wednesday) seen in [place] ER - things were going down but super slow, felt like he had to belch to get it to go down - has had food stuck before - EGD x2 in the past about 12 years ago - thinks he has heard the term eosinophilic esophagitis previously - does not get reflux often, feels a tiny bit the past week or so - denies any heart or lung disease - denies any kidney disease - he has a history Asthma - denies any h/o of eczema - denies any family h/o esophageal or gastric cancer - reports his brother has same issues he does - weight loss, due to not eating solid foods since last - denies taking any NSAIDS - 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 - last solid food was this past - last had liquids 2 hours ago - 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[facility], [facility] Medical History Asthma History of esophageal dilatation Home Medications ?Medication ?Instructions ?Recorded ?Last Taken ?Type pantoprazole 20 mg tablet,delayed 20 mg PO DAILY 01/1701/18/25 History release Allergy/AdvReac Type Severity Reaction Status Date / Time Penicillins Allergy Mild Nausea/Vom/ Verified 01/19/25 06:45 Diarrhea Surgical History H/O esophagogastroduodenoscopy Social History Smoking Status: Never smoker ROS Constitutional Constitutional: Denies fatigue, fever(s), poor appetite, weight gain or weight loss Gastrointestinal Gastrointestinal: Denies belching, bloating, change in bowel habits, change in stool character, chewing difficulty, coffee ground emesis, constipation, cramping, diarrhea, dyspepsia, dysphagia, early satiety, excessive flatus, fecal incontinence, heartburn, hematemesis, hematochezia, hemorrhoids, loose stools, melena, nausea, odynophagia, rectal bleeding, tenesmus, vomiting or weight changes Vital Signs Vital Signs Vital Signs: 01/19/25 06:45 01/19/25 06:45 01/19/25 07:13 Temperature 97.3 F L 97.3 F L Temperature Source Temporal Pulse Rate 62 62 Respiratory Rate 14 14 Respiratory Pattern Normal Blood Pressure 129/85 H 129/85 H Blood Pressure Mean 99 Blood Pressure Source Monitor Blood Pressure Position Semi-Fowlers Blood Pressure Location Left Arm Pulse Ox 99 99 Oxygen Delivery Method Room Air Room Air Weight Weight: 185 lb 3.013 oz Body Mass Index (BMI) 25.1 Physical Exam Const alert, oriented x3, no apparent distress and healthy appearing General Appearance: cooperative GI normal to inspection, nondistended, normoactive bowel sounds, soft to palpation, non-tender and non-distended Percussion: normal to percussion Rectal Exam: deferred Assessment & Plan Assessment/Plan (1) Dysphagia: (2) Difficulty swallowing liquids: (3) History of esophageal dilatation: PLAN: Assessment and Plan Assessment and Plan (1) Dysphagia: Status: Acute Orders: Orders EGD 01/19/25 R13.10 - Dysphagia, unspecified, Z98.890 - Other specified postprocedural states Medications: Discontinued pantoprazole (Protonix) Discontinued Reason: Pt no longer taking 20 mg PO DAILY 14 tabs 0RF Plan 29y/o male with history of esophageal stricture with previous dilation x2 presents with complaints of mid-upper esophageal dysphagia. Considering the patient's history of episodic dysphagia, plus a brother with a similar esophageal disorder, eosinophilic esophagitis (EOE) is suspected. Diagnosis will be confirmed with endoscopy. He was prescribed pantoprazole 20mg daily by ED and ever started. He will start now and follow-up in the office post procedure. Patient Instructions: Soft food and liquids Start pantoprazole 20mg once daily EGD this week Follow-up in office 10-14 days post EGD to review results
--- NOTE | 2025-01-19 07:30 | EGD_PTH ---
PATIENT: RICHY ZUNIGA LOC: EN U#:[id number] AGE/SX: 29/M ROOM: RE01/19/[address]: Dr. Mahin Arteaga DO : 1995 BED: DIS: 01/19/2025 SPEC #: [id number] RECD: 01/19/25 10:43 STATUS: YUE REJoana #: [id number] DAVID: 01/19/25 07:[address]: Mahin Arteaga DEPT: SURGICAL PATHOLOGY RECD BY: Jared Parekh ENTERED: 01/19/25 15:11 SP TYPE: EGD BIOPSY OT DR: Awilda Primary Care Phys Tissues: A - Esophagus, NOS Procedures: Surgery Specimen Level IV HEADER OPERATION: EGD, biopsy, dilation PRE-OP DIAGNOSIS: Dysphagia, difficulty swallowing liquids, history of esophageal dilatation TISSUE SUBMITTED: A- Random esophagus biopsy MICROSCOPIC DIAGNOSIS A. Esophagus, random, biopsy: - Squamous mucosa with up to 20 eosinophils per high power field. - Scant columnar mucosa negative for goblet cell metaplasia. MICROSCOPIC DESCRIPTION Slides are reviewed. GROSS DESCRIPTION A. Received in fixative is one container labeled with the patient's name and designated Random esophagus biopsy. The specimen consists of multiple irregular fragments of light sevilla soft tissue that in aggregate measure 1.9 x 0.6 x 0.1 cm. The specimen is totally submitted in one cassette. IL 01/19/2025 CPT:04432
--- NOTE | 2025-01-19 07:47 | OP.EGD_ITS ---
Patient Name: Jose Edouard Procedure Date: 01/19/2025 7:23 AM Date of : 1995 Age: 29 Procedure: Upper GI endoscopy Indications: Dysphagia Providers: Mahin Arteaga DO Referring MD: No Primary Care Physician Medicines: Monitored Anesthesia Care Patient Profile: This is a 29 year old male. Refer to note in patient chart for documentation of history and physical. Patient has symptoms of dysphagia with both liquids and solids. Complications: No immediate complications. Procedure: Pre-Anesthesia Assessment: - Prior to the procedure, a History and Physical was performed, and patient medications and allergies were reviewed. The patient is competent. The risks and benefits of the procedure and the sedation options and risks were discussed with the patient. All questions were answered and informed consent was obtained. Patient identification and proposed procedure were verified by the physician in the pre-procedure area. Mental Status Examination: alert and oriented. Airway Examination: normal oropharyngeal airway and neck mobility. Respiratory Examination: clear to auscultation. CV Examination: normal. Prophylactic Antibiotics: The patient does not require prophylactic antibiotics. Prior Anticoagulants: The patient has taken no anticoagulant or antiplatelet agents except for NSAID medication. ASA Grade Assessment: II - A patient with mild systemic disease. After reviewing the risks and benefits, the patient was deemed in satisfactory condition to undergo the procedure. The anesthesia plan was to use monitored anesthesia care (MAC). Immediately prior to administration of medications, the patient was re-assessed for adequacy to receive sedatives. The heart rate, respiratory rate, oxygen saturations, blood pressure, adequacy of pulmonary ventilation, and response to care were monitored throughout the procedure. The physical status of the patient was re-assessed after the procedure. After obtaining informed consent, the endoscope was passed under direct vision. Throughout the procedure, the patient's blood pressure, pulse, and oxygen saturations were monitored continuously. The Endoscope was introduced through the mouth, and advanced to the second part of duodenum. The upper GI endoscopy was accomplished without difficulty. The patient tolerated the procedure well. Scope In: 7:31:19 AM Scope Out: 7:40:42 AM Total Procedure Duration Time 0 hours 9 minutes 23 seconds Findings: Mucosal changes including ringed esophagus, feline appearance, longitudinal furrows, small-caliber esophagus, white plaques and circumferential folds were found in the entire esophagus. Esophageal findings were graded using the Eosinophilic Esophagitis Endoscopic Reference Score (EoE-EREFS) as: Edema Grade 1 Present (decreased clarity or absence of vascular markings), Rings Grade 3 Severe (distinct rings that do not permit passage of diagnostic 8-10 mm endoscope), Exudates Grade 1 Mild (scattered white lesions involving less than 10 percent of the esophageal surface area), Furrows Grade 1 Mild (vertical lines without visible depth) and Stricture present. Biopsies were obtained from the proximal and distal esophagus with cold forceps for histology of suspected eosinophilic esophagitis. A TTS dilator was passed through the scope. Dilation with a 15-16.5-18 mm balloon dilator was performed to 13 mm. The dilation site was examined and showed. Estimated blood loss was minimal. No gross lesions were noted in the entire examined stomach. No gross lesions were noted in the second portion of the duodenum. Impression: - Esophageal mucosal changes secondary to eosinophilic esophagitis. Dilated. - No gross lesions in the entire stomach. - No gross lesions in the second portion of the duodenum. - Biopsies were taken with a cold forceps for evaluation of eosinophilic esophagitis. Recommendation: - Discharge patient to home. - Resume previous diet. - Continue present medications. - Await pathology results. - Use Protonix (pantoprazole) 40 mg PO BID. - Start Dupixent Procedure Code(s): --- Professional --- 67719, Esophagogastroduodenoscopy, flexible, transoral; with transendoscopic balloon dilation of esophagus (less than 30 mm diameter) 32732, 59,51, Esophagogastroduodenoscopy, flexible, transoral; with biopsy, single or multiple CPT copyright 2021 [employer]. All rights reserved. The codes documented in this report are preliminary and upon condenser operator review may be revised to meet current compliance requirements. Mahin Arteaga DO 01/19/2025 7:47:11 AM This report has been signed electronically. Number of Addenda: 0 Note Initiated On: 01/19/2025 7:23 AM
--- NOTE | 2025-01-19 07:47 | OP.PROVAT_ITS ---
01/19/2025 No Primary Care Physician Re : Upper GI endoscopy procedure for Jose Edouard Dear Care Physician This procedure was performed on Sunday, January 19, 2025. My impressions and recommendations are as follows: Impressions : - Esophageal mucosal changes secondary to eosinophilic esophagitis. Dilated. - No gross lesions in the entire stomach. - No gross lesions in the second portion of the duodenum. - Biopsies were taken with a cold forceps for evaluation of eosinophilic esophagitis. Recommendations : - Discharge patient to home. - Resume previous diet. - Continue present medications. - Await pathology results. - Use Protonix (pantoprazole) 40 mg PO BID. - Start Dupixent My findings are described in the full procedure note, which is enclosed. If I can be of further assistance, please feel free to contact me at . Sincerely, Mahin Arteaga, 01/19/2025 7:47:11 AM This report has been signed electronically.
--- NOTE | 2025-01-19 07:59 | PCM.POST.ANE ---
Anesthesia: Postop Eval I Current Vital Signs Temperature: 97.7 F Pulse Rate: 97 Blood Pressure: 118/55 Respiratory Rate: 18 Pulse Ox: 93 Oxygen Delivery Method: Room Air Assessment Airway patent: Yes Spontaneous unlabored respirations: Yes Mental status: Awake nausea: No Vomiting: Yes Anesthesia Complication: Yes Anesthesia Complication Comment:: pt emesis immediately after scope removed, suctioned, lungs CTA but drop in O2 sat to low 90's% Fluid Hydration Crystalloid volume administer (ml): 400 Total IV fluid infused: 400 Progress Note Anesthesia document: Postop Eval 1 completed: Yes
--- NOTE | 2025-01-19 08:13 | CPS ---
PACU nurse gave the pt breathing tx
--- NOTE | 2025-01-19 14:18 | PCM.POSTANE2 ---
Anesthesia Postop Eval I Sum Postop Eval Completion status Anesthesia document: Postop Eval 1 completed: Yes Anesthesia Postop Eval I Summary Anesthesia Postop Eval I Summary: Anesthesia Postop Eval I: Assessment Summary Airway patent Yes 01/19/25 08:00 [email or web address] Spontaneous unlabored Yes 01/19/25 08:00 [email or web address] respirations Mental status Awake 01/19/25 08:00 [email or web address] nausea No 01/19/25 08:00 [email or web address] Vomiting Yes 01/19/25 08:00 [email or web address] Anesthesia Postop Eval I: Fluid Summary Crystalloid volume administer 400 01/19/25 08:00 [email or web address] (ml) Colloids volume administered ( ml) Blood Product volume administered (ml) Total IV fluid infused 400 01/19/25 08:00 [email or web address] Anesthesia Postop Eval I: Summary Notes Anesthesia Complication Yes 01/19/25 08:00 [email or web address] Anesthesia Complication pt emesis 01/19/25 08:00 [email or web address] Comment: immediately after scope removed, suctioned, lungs CTA but drop in O2 sat to low 90's% Post-operative progress note Anesthesia: Postop Eval II Evaluation Mental status: Awake and Calm Pain Level: 0 nausea: No Vomiting: No Progress Note Post-operative progress note: extra dose of zofran given Complications Anesthesia Complication: No
== END 2025-01-19 09:03 | disposition home or self-care (01) ==
LOC: EN 06:20 → AC 06:21
PROVIDERS: Visit Provider Internal Medicine Gastroenterology
PROC: 0DJ08ZZ Inspection of Upper Intestinal Tract, Via Natural or Artificial Opening Endoscopic (ICD-10-PCS; CPT 43235; principal; 2025-01-19 07:25)
DX: R13.10 Dysphagia, unspecified (principal); K20.0 Eosinophilic esophagitis
CPT/HCPCS: 43193; 43249; 88305; 94640; J2405

== ENCOUNTER 2025-05-02 06:52 | Day surgery (SDC) | payer OTHER, SELFPAY ==
[2025-05-02] VITALS (9 sets, daily range): BP systolic 114–133; BP diastolic 73–87; PULSE 61–88; RESP 16; TEMP 36.3–36.9; O2SAT 93–100; BMI 25.7
--- OUTSIDE RECORDS SUMMARY | 2025-05-02 06:57 | XMS RPT_ITS | CCD ---
Author Organization [facility] CliniSypr Care Team Providers Care Agricultural Lender Name Role Phone Care Physician, No Primary Primary Care Provider Unavailable Dr. Carolin Hoyos DO Emergency Provider Care Physician, No Primary Referring Provider Un available Bo HOPSON-CAmy Attending Provider Dr. Carolin Hoyos DO Attending Provider Jenni DOVER, Dr. Stockton Attending Provider Jenni DOVER, Dr. Stockton Other Provider FRIDA BANG, JUNAID Singletary Attending Unavail able Care Physician, No Primary Primary Care Physicia n Unavailable Dr. Carolin Hoyos DO Attending Physician Dr. Carolin Hoyos DO Emergency Department Physi jacinda Bo HOPSON-CAmy Attending Physician [phone] Jenni DOVER, Dr. Stockton Attending Physician Jenni DOVER, Dr. Stockton Nurse Practitioner Carolin Hoyos Attending Unavailable Care Physician, No Primary Primary Care Unava ilable Care Physician, No Primary Primary Care Unava ilable Mahin Arteaga Attending Unavailable Care Physician, No Primary Primary Care Unava ilable Care Physician, No Primary Referring Unava ilable Amy Soriano Attending Unavailable Care Physician, No Primary Referring Unava ilable Care Physician, No Primary Primary Care Unava ilable Amy Soriano Attending Unavailable Mahin Arteaga Consulting Unavailable Care Physician, No Primary Primary Care Unava ilable Care Physician, No Primary Referring Unava ilable Mahin Arteaga Attending Unavailable Care Physician, No Primary Primary Care Unava ilable Care Physician, No Primary Referring Unava ilable Friend, Mahin Attending Unavailable Allergies Allergy Classification Reported Allergen(s) Allergy Type Date of Onset Reaction(s) Facility (1 source) Penicillin; Translations: [penicillins] Drug Allergy Nausea [facility] (4 sources) Penicillins Allergy to substance 5 Nausea/Vom/Diar gianfranco [facility] (1 source) Penicillins Drug allergy (disorder) 5 [facility] Repository Medications Current Medications Medication Drug Class(es) [...] Total Allowed Fills: 1 Fills Dispensed: 0 [place] (Nk) (2 sources) Start: 01-13-2025 [place] (Nk) Active January 13, 2025 12:00am pantoprazole 40 mg delayed release oral tablet (7 sources) Proton Pump Inhibitor Start: 02-01-2025 take 1 tablet by mouth twice daily Pantoprazole 40 mg tablet,delayed release (DR/EC) Active 40 mg PO TWICE A DAY 180 1 February 01, 2025 12:00am Complies with drug therapy Start: 01-13-2025 End: 02-01-2025 take 1 tablet by mouth once daily Pantoprazole 20 mg tablet,delayed release (DR/EC) Discontinued 20 mg PO DAILY January 17, 2025 12:00am February 01, 2025 2:02pm Problems Problem Classification Problem Date Documented Da te Episodic/Chronic Asthma (1 source) Asthma 03-25-2019 Chronic Esophageal disorders (2 sources) Eosinophilic esophagitis; Translations: [Eosinophilic esophagitis] 02-01-2025 Chronic Intracranial injury (1 source) 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 Other gastrointestinal disorders (7 sources) Dysphagia; Translations: [Dysphagia, unspecified] Onset: 01-12-2025 Episodic Other gastrointestinal disorders (6 sources) Difficulty swallowing fluid; Translations: [Dysphagia, unspecified] 01-13-2025 Episodic Other gastrointestinal disorders (3 sources) Dysphagia, unspecified; Translations: [Dysphagia, unspecified] Onset: 01-12-2025 Episodic Residual codes; unclassified (6 sources) Past history of procedure; Translations: [Other specified postprocedural states] 01-13-2025 Episodic Residual codes; unclassified (2 sources) Other specified postprocedural states; Translations: [Other specified postprocedural states] Onset: 01-17-2025 Episodic Unclassified (1 source) Foreign body sensation, throat; Translations: [Foreign body sensation, throat] Onset: 01-18-2025 Results Test Name Value Interpretation Reference Range Facility Gastroenterology Visit Repor ton 02-01-2025 Gastroenterology Visit Report [facility] Gastroenterology [address] [place] [address] OFFICE VISIT Date of Service: 02/01/25 MR#: [id number] Acct: [id number] Name: JOSE EDOUARD Rep #: [id number] : 1995 Provider: CHARLEY lopez Age/Sex: 29/M Location: [facility] Status: Signed Intake Vital Signs 01/16/25 11:43 01/19/25 06:45 02/01/25 13:35 Height 6 ft 6 ft 6 ft Weight: 185 lb 2 oz BMI 25.1 BP 118/74 Respiration 16 Pulse 63 Temp 97.9 F Temp Source Temporal Pulse Oximetry (%) 97 Oxygen Delivery Method room air Intake Visit Reasons: TEST-Dysphagia Chief Complaint: trouble swallowing 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 Required: No Accompanied by: Self Is patient in pain?: No Allergies Penicillins Allergy (Mild, Verified 02/01/25 13:32) Nausea/Vom/Diarrhea Medications ???Medication ???Instructions ???Recorded ???Confirmed ???Type pantoprazole 40 mg tablet,delayed 40 mg PO BID #180 tabs 02/01/25 0 02/01/25 Rx release PFSH Medical History Asthma History of esophageal dilatation Surgical History H/O esophagogastroduodenoscopy Social History Smoking Status: Never smoker HPI HPI Chief Complaint: trouble swallowing Details: OV 01/16/2025 29y/o male with history of esophageal stricture with previous dilation x2 presents with complaints of mid-upper esophageal dysphagia. Considering the patient's history of episodic dysphagia, plus a brother with a similar esophageal disorder, eosinophilic esophagitis (EOE) is suspected. Diagnosis will be confirmed with endoscopy. He was prescribed pantoprazole 20mg daily by ED and ever started. He will start now and follow-up in the office post procedure. Patient Instructions: Soft food and liquids Start pantoprazole 20mg once daily EGD this week Follow-up in office 10-14 days post EGD to review results EGD 01/19/2025 - Squamous mucosa with up to 20 eosinophils per high power field - Resume previous diet. - Continue present medications. - Await pathology results. - Use Protonix (pantoprazole) 40 mg PO BID. - Start Dupixent The patient is a 29-year-old male presenting with Eosinophilic Esophagitis (EOE). The patient reports a history of esophageal dilations, initially occurring approximately 12 years ago, o stensibly believed to be secondary to acid reflux. Recurrence of dysphagia symptoms led to another dilation, during which biopsies revealed 20 eosinophils per high-powered field, confirming a diagnosis of EOE. Initially, the patient experienced difficulty swallowing and had episodes where food would become lodged in the esophagus, with bread being particularly problematic. Over time, the patient developed strategies for managing swallowing difficulties, such as eating slowly to prevent obstruction. Compliance with pantoprazole usage has been inconsistent due to previous reliance on a 20 mg dose previously provided by the emergency department. Attempts to obtain a higher dosage prescription from a pharmacy were unsuccessful. The patient has a family history of similar esophageal issues. The patient adheres to conservative dietary adjustments, minimizing bread intake to avoid exacerbation of symptoms. There is no family history of celiac disease. - still eating slow - nothing has gotten stuck since EGD - denies any family h/o celiac disease - post EGD was taking pantoprazole 20mg BID until he ran out - continues to avoid bread - drinks raw milk ROS Const Constitutional: Positive for weight change (loss); No fatigue or fever(s) ENT ENT: Positive for difficulty swallowing Gastro GI: Positive for difficulty swallowing; No abdominal pain, belching, bloating, change in bowel habits, change in stool character, coffee ground emesis, constipation, cramping, diarrhea, heartburn, feeling full early, excessive flatus, incontinent of stools, Vomiting blood/hematemesis, Blood in stool, loose stools, Black,tarry stools, nausea/dyspepsia, pain with swallowing, vomiting or other Musc Musculoskeletal: No joint pain Skin Skin: No yellowing of the eye or itchy eyes Psych Psychiatric: No anxiety and No depression Endo Endocrine: Positive for weight change (loss); No fatigue Aller/Imm Allergy/Immunologic: No itchy eyes Efrain/Lymp Hematologic/Lymphatic: No easy bleeding or easy bruising Exam Const General: cooperative, healthy appearing, no acute distress and well developed Nutritional Appearance: average body habitus and well nourished Orientation: alert and oriented x3 HENMT Head: normocephalic Ears: hearing grossly normal bilaterally Mouth: moist mucous membranes Teeth and gingiva: dentiti (more content not included)... Normal [facility] EGD Reporton 01-19-2025 EGD Report [facility] Medical Records Department [address] [place] [address] EGD Report MR#: [id number] Acct: [id number] Name: JOSE EDOUARD Rep #: [id number] : 1995 29 From: Mahin Arteaga DO PCP: Care Physician,No Primary Status:[facility] Patient Name: Jose Edouard Procedure Date: 01/19/2025 7:23 AM Date of : 1995 Age: 29 Procedure: Upper GI endoscopy Indications: Dysphagia Providers: Mahin Arteaga DO Referring MD: No Primary Care Physician Medicines: Monitored Anesthesia Care Patient Profile: This is a 29 year old male. Refer to note in patient chart for documentation of history and physical. Patient has symptoms of dysphagia with both liquids and solids. Complications: No immediate complications. Procedure: Pre-Anesthesia Assessment: - Prior to the procedure, a History and Physical was performed, and patient medications and allergies were reviewed. The patient is competent. The risks and benefits of the procedure and the sedation options and risks were discussed with the patient. All questions were answered and informed consent was obtained. Patient identification and proposed procedure were verified by the physician in the pre-procedure area. Mental Status Examination: alert and oriented. Airway Examination: normal oropharyngeal airway and neck mobility. Respiratory Examination: clear to auscultation. CV Examination: normal. Prophylactic Antibiotics: The patient does not require prophylactic antibiotics. Prior Anticoagulants: The patient has taken no anticoagulant or antiplatelet agents except for NSAID medication. ASA Grade Assessment: II - A patient with mild systemic disease. After reviewing the risks and benefits, the patient was deemed in satisfactory condition to undergo the procedure. The anesthesia plan was to use monitored anesthesia care (MAC). Immediately prior to administration of medications, the patient was re-assessed for adequacy to receive sedatives. The heart rate, respiratory rate, oxygen saturations, blood pressure, adequacy of pulmonary ventilation, and response to care were monitored throughout the procedure. The physical status of the patient was re-assessed after the procedure. After obtaining informed consent, the endoscope was passed under direct vision. Throughout the procedure, the patient's blood pressure, pulse, and oxygen saturations were monitored continuously. The Endoscope was introduced through the mouth, and advanced to the second part of duodenum. The upper GI endoscopy was accomplished without difficulty. The patient tolerated the procedure well. Scope In: 7:31:19 AM Scope Out: 7:40:42 AM Total Procedure Duration Time 0 hours 9 minutes 23 seconds Findings: Mucosal changes including ringed esophagus, feline appearance, longitudinal furrows, small-caliber esophagus, white plaques and circumferential folds were found in the entire esophagus. Esophageal findings were graded using the Eosinophilic Esophagitis Endoscopic Reference Score (EoE-EREFS) as: Edema Grade 1 Present (decreased clarity or absence of vascular markings), Rings Grade 3 Severe (distinct rings that do not permit passage of diagnostic 8-10 mm endoscope), Exudates Grade 1 Mild (scattered white lesions involving less than 10 percent of the esophageal surface area), Furrows Grade 1 Mild (vertical lines without visible depth) and Stricture present. Biopsies were obtained from the proximal and distal esophagus with cold forceps for histology of suspected eosinophilic esophagitis. A TTS dilator was passed through the scope. Dilation with a 15-16.5-18 mm balloon dilator was performed to 13 mm. The dilation site was examined and showed. Estimated blood loss was minimal. No gross lesions were noted in the entire examined stomach. No gross lesions were noted in the second portion of the duodenum. Impression: - Esophageal mucosal changes secondary to eosinophilic esophagitis. Dilated. - No gross lesions in the entire stomach. - No gross lesions in the second portion of the duodenum. - Biopsies were taken with a cold forceps for evaluation of eosinophilic esophagitis. Recommendation: - Discharge patient to home. - Resume previous diet. - Continue present medications. - Await pathology results. - Use Protonix (pantoprazole) 40 mg PO BID. - Start Dupixent Procedure Code(s): --- Professional --- 56499, Esophagogastroduodenoscopy, flexible, transoral; with transendoscopic balloon dilation of esophagus (less than 30 mm diameter) 28811, 59,51, Esophagogastroduodenoscopy, flexible, transoral; with biopsy, single or multiple CPT copyright 2021 [employer]. All rights reserved. The codes documented in this report are preliminary and upon firmware software verification engineer review may be revised to meet current compliance requirem (more content not included)... Normal [facility] Medical Records Department [address] [place] [address] Provation Physician Letter MR#: [id number] Acct: [id number] Name: JOSE EDOUARD KANDACE Rep #: [id number] : 1995 29 From: Mahin Arteaga DO PCP: Care Physician,No Primary Status:[facility] 01/19/2025 No Primary Care Physician Re : Upper GI endoscopy procedure for Jose Edouard Dear Care Physician This procedure was performed on Sunday, January 19, 2025. My impressions and recommendations are as follows: Impressions : - Esophageal mucosal changes secondary to eosinophilic esophagitis. Dilated. - No gross lesions in the entire stomach. - No gross lesions in the second portion of the duodenum. - Biopsies were taken with a cold forceps for evaluation of eosinophilic esophagitis. Recommendations : - Discharge patient to home. - Resume previous diet. - Continue present medications. - Await pathology results. - Use Protonix (pantoprazole) 40 mg PO BID. - Start Dupixent My findings are described in the full procedure note, which is enclosed. If I can be of further assistance, please feel free to contact me at . Sincerely, Mahin Arteaga DO 01/19/2025 7:47:11 AM This report has been signed electronically. 01/19/25746 Date Mahin Arteaga DO Cosignvicky Signature: Date (if indicated) CC: No Primary Care Physician; Mahin Arteaga DO Date Dictated: 01/19/25722 Date Transcribed: Machinist Set Up: ALANA Signed [facility] MR/POSTOP.[facility] 01-19-2025 MR/POSTOP.[facility] Medical Records Department [address] [place] [address] Anesthesia Postop Eval I 01/19/25758 MR#: [id number] Acct: [id number] Name: JOSE EDOUARD KANDACE Rep #: [id number] : 1995 29 From: Carlton Gay PCP: Care Physician,No Primary Status:REG [facility] Y Race: C Location: [place] [address] Anesthesia: Postop Eval I Current Vital Signs Temperature: 97.7 F Pulse Rate: 97 Blood Pressure: 118/55 Respiratory Rate: 18 Pulse Ox: 93 Oxygen Delivery Method: Room Air Assessment Airway patent: Yes Spontaneous unlabored respirations: Yes Mental status: Awake nausea: No Vomiting: Yes Anesthesia Complication: Yes Anesthesia Complication Comment:: pt emesis immediately after scope removed, suctioned, lungs CTA but drop in O2 sat to low 90's% Fluid Hydration Crystalloid volume administer (ml): 400 Total IV fluid infused: 400 Progress Note Anesthesia document: Postop Eval 1 completed: Yes 01/19/25 08 Date Carlton Clark Signature: Date CC: Signed Normal [facility] MR/[id number] 01-19-2025 MR/POSTOPAN2 [facility] Medical Records Department [address] [place] [address] Anesthesia Postop Eval II 01/19/25 1418 MR#: [id number] Acct: [id number] Name: JOSE EDOUARD Rep #: [id number] : 1995 29 From: Tanya Izaguirre CRNA PCP: Care Physician,No Primary Status:[facility] Y Race: C Location: [place] Anesthesia Postop Eval I Sum Postop Eval Completion status Anesthesia document: Postop Eval 1 completed: Yes Anesthesia Postop Eval I Summary Anesthesia Postop Eval I Summary: Anesthesia Postop Eval I: Assessment Summary Airway patent Yes 01/19/25 08:00 [email or web address] Spontaneous unlabored Yes 01/19/25 08:00 [email or web address] respirations Mental status Awake 01/19/25 08:00 [email or web address] nausea No 01/19/25 08:00 [email or web address] Vomiting Yes 01/19/25 08:00 [email or web address] Anesthesia Postop Eval I: Fluid Summary Crystalloid volume administer 400 01/19/25 08:00 [email or web address] (ml) Colloids volume administered ( ml) Blood Product volume administered (ml) Total IV fluid infused 400 01/19/25 08:00 [email or web address] Anesthesia Postop Eval I: Summary Notes Anesthesia Complication Yes 01/19/25 08:00 [email or web address] Anesthesia Complication pt emesis 01/19/25 08:00 [email or web address] Comment: immediately after scope removed, suctioned, lungs CTA but drop in O2 sat to low 90's% Post-operative progress note Anesthesia: Postop Eval II Evaluation Mental status: Awake and Calm Pain Level: 0 nausea: No Vomiting: No Progress Note Post-operative progress note: extra dose of zofran given Complications Anesthesia Complication: No 01/19/25 1420 Date Tanya Mcraerileysharyn REBECCA Clark Signature: Date CC: Signed Normal [facility] Surgery Specimen Level [place] 01-19-2025 Surgery Specimen Level IV ----- Patient Age/Sex Location Account Attending Physician ----- JOSE EDOUARD 29/M EN [id number] Mahin Arteaga DO ----- Specimen: [id number] Received: 01/19/25 Status: YUE Das Num: [id number] Spec Type: EGD BIOPSY Mallory Dr: Mahin Arteaga, DO HEADER OPERATION: EGD, biopsy, dilation PRE-OP DIAGNOSIS: Dysphagia, difficulty swallowing liquids, history of esophageal dilatation TISSUE SUBMITTED: A- Random esophagus biopsy ----- MICROSCOPIC DIAGNOSIS A. Esophagus, random, biopsy: - Squamous mucosa with up to 20 eosinophils per high power field. - Scant columnar mucosa negative for goblet cell metaplasia. MICROSCOPIC DESCRIPTION Slides are reviewed. GROSS DESCRIPTION A. Received in fixative is one container labeled with the patient's name and designated Random esophagus biopsy. The specimen consists of multiple irregular fragments of light sevilla soft tissue that in aggregate measure 1.9 x 0.6 x 0.1 cm. The specimen is totally submitted in one cassette. [place] 01/19/2025 CPT:84821 ----- Patient Age/Sex Location Account Attending Physician ----- JOSE EDOUARD/Mayra [place] [id number] Mahin Arteaga DO ----- Signed (signature on file) Dr. Joyce James MD 01/23/25 1642 ----- Normal [facility] Comment on above: Performed By: #### P SUIV #### [facility] Laboratory [address] [place], [address] Gastroenterology Visit Repor ton 01-16-2025 Gastroenterology Visit Report [facility] Gastroenterology [address] [place] [address] OFFICE VISIT Date of Service: 01/16/25 MR#: [id number] Acct: [id number] Name: JOSE EDOUARD Rep #: [id number] : 1995 Provider: CHARLEY lopez Age/Sex: 29/M Location: [facility] Status: Signed Intake Vital Signs 01/13/25 21:07 01/16/25 11:43 Height 6 ft 6 ft Weight: 189 lb 2 oz BMI 25.6 BP 133/89 H Respiration 16 Pulse 78 Temp 98.2 F Temp Source Temporal Pulse Oximetry (%) 97 Oxygen Delivery Method room air Intake Visit Reasons: Referral from ED Chief Complaint: trouble swallowing 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 Required: No Accompanied by: Self Is patient in pain?: No Allergies Penicillins Allergy (Mild, Verified 01/16/25 11:41) Nausea/Vom/Diarrhea Medications ???Medication ???Instructions ???Recorded ???Confirmed ???Type NK 01/13/25 01/16/25 History PFSH Medical History (Updated 01/16/25 @ 12:27 by CHARLEY Olivas) Asthma History of esophageal dilatation Social History Smoking Status: Never smoker HPI HPI Chief Complaint: trouble swallowing Details: ER 01/14/2025 - [facility] Patient evaluated for sensation of food stuck in his esophagus and having a hard time drinking little on eating. He was seen at [facility] yesterday where he was treated with [...] for close outpatient GI follow-up with Dr. 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 Normal [facility] Emergency Department Summary on 01-13-2025 Emergency Department Summary [facility] Medical Records Department [address] [place] [address] Emergency Department Summary 01/13/25 MR#: [id number] Acct: [id number] Name: JOSE EDOUARD Rep #: [id number] : 1995 29 From: Carolin Hoyos DO [...] the liquids going down. He went to [facility] yesterday where he received Zofran and [...] he is not been able to eat. [facility] Medical History History of esophageal dilatation Home [...] little on eating. He was seen at [facility] yesterday where he was treated with [...] follow-up with (more content not included)... Normal [facility] Vital Signs Date Time Vital Sign Value Performing Clinician Bruce rios 02-01-2025 13:35-0400 Body height 182.88 cm No Primary Care Physician [facility] 02-01-2025 13:35-0400 Body mass index (BMI) [Ratio] 25.1 kg/m2 No Primary Care Physician [facility] 02-01-2025 13:35-0400 Body temperature 97.9 [degF] No Primary Care Physician [facility] 02-01-2025 13:35-0400 Body weight 83.97 kg No Primary Care Physician [facility] 02-01-2025 13:35-0400 Diastolic blood pressure 74 mm[Hg] No Primary Care Physician [facility] 02-01-2025 13:35-0400 Heart rate 63 /min No Primary Care Physician [facility] 02-01-2025 13:35-0400 Respiratory rate 16 /min No Primary Care Physician [facility] 02-01-2025 13:35-0400 SaO2% (BldA) [Mass fraction] 97 % No Primary Care Physician [facility] 02-01-2025 13:35-0400 Systolic blood pressure 118 mm[Hg] No Primary Care Physician [facility] 01-19-2025 08:28-0400 Body temperature 97.4 [degF] No Primary Care Physician [facility] 01-19-2025 08:28-0400 Diastolic blood pressure 56 mm[Hg] No Primary Care Physician [facility] 01-19-2025 08:28-0400 Heart rate 80 /min No Primary Care Physician [facility] 01-19-2025 08:28-0400 Respiratory rate 16 /min No Primary Care Physician [facility] 01-19-2025 08:28-0400 SaO2% (BldA) [Mass fraction] 95 % No Primary Care Physician [facility] 01-19-2025 08:28-0400 Systolic blood pressure 119 mm[Hg] No Primary Care Physician [facility] 01-19-2025 08:05-0400 Inhaled oxygen flow rate 3 L/min No Primary Care Physician [facility] 01-19-2025 06:45-0400 Body height 182.88 cm No Primary Care Physician [facility] 01-19-2025 06:45-0400 Body mass index (BMI) [Ratio] 25.1 kg/m2 No Primary Care Physician [facility] 01-19-2025 06:45-0400 Body weight 84 kg No Primary Care Physician [facility] 01-16-2025 11:43-0400 Body height 182.88 cm No Primary Care Physician [facility] 01-16-2025 11:43-0400 Body mass index (BMI) [Ratio] 25.6 kg/m2 No Primary Care Physician [facility] 01-16-2025 11:43-0400 Body temperature 98.2 [degF] No Primary Care Physician [facility] 01-16-2025 11:43-0400 Body weight 85.78 kg No Primary Care Physician [facility] 01-16-2025 11:43-0400 Diastolic blood pressure 89 mm[Hg] No Primary Care Physician [facility] 01-16-2025 11:43-0400 Heart rate 78 /min No Primary Care Physician [facility] 01-16-2025 11:43-0400 Respiratory rate 16 /min No Primary Care Physician [facility] 01-16-2025 11:43-0400 SaO2% (BldA) [Mass fraction] 97 % No Primary Care Physician [facility] 01-16-2025 11:43-0400 Systolic blood pressure 133 mm[Hg] No Primary Care Physician [facility] 01-13-2025 22:50-0400 Body temperature 97.6 [degF] No Primary Care Physician [facility] 01-13-2025 22:50-0400 Diastolic blood pressure 102 mm[Hg] No Primary Care Physician [facility] 01-13-2025 22:50-0400 Heart rate 76 /min No Primary Care Physician [facility] 01-13-2025 22:50-0400 Respiratory rate 16 /min No Primary Care Physician [facility] 01-13-2025 22:50-0400 SaO2% (BldA) [Mass fraction] 96 % No Primary Care Physician [facility] 01-13-2025 22:50-0400 Systolic blood pressure 133 mm[Hg] No Primary Care Physician [facility] 01-13-2025 21:07-0400 Body height 182.88 cm No Primary Care Physician [facility] 01-13-2025 21:07-0400 Body mass index (BMI) [Ratio] 25.9 kg/m2 No Primary Care Physician [facility] 01-13-2025 21:07-0400 Body weight 87 kg No Primary Care Physician [facility] Encounters Encounter Date Encounter Type Care Provider Facility Start: 05-02-2025 ambulatory No Primary Car e Physician Facility:[facility] Start: 02-01-2025 End: 02-01-2025 Patient encounter procedure Amy WHITEHEAD -[facility] Work Phone: Start: 02-01-2025 End: 02-01-2025 ambulatory No Primary Care Physician -[facility] Start: 01-19-2025 Non-patient / Non-visit Mahin Arteaga DO -[facility] Start: 01-19-2025 End: 01-19-2025 Admission to same day surgery center Mahinadele Arteaga DO -Endoscopy Work Phone: Start: 01-19-2025 End: 01-19-2025 ambulatory No Primary Care Physician -Endoscopy Start: 01-16-2025 End: 01-16-2025 Patient encounter procedure Amy Soriano NP- -[facility] Work Phone: Start: 01-16-2025 End: 01-16-2025 ambulatory No Primary Care Physician -[facility] Start: 01-13-2025 End: 01-13-2025 Emergency department patient visit No Primary Care Physician -Emergency Department Work Phone: Start: 01-12-2025 End: 01-12-2025 Emergency department patient visit JUNAID GALICIA MD [facility] Procedures Date Procedure Procedure Detail Performing Clinician Start: 01-19-2025 Esophagogastroduodenoscopy No Primary Care Physician Start: 05-22-2013 Esophagogastroduodenoscopy JUNAID GALICIA MD Comment on above: [facility]-Dr. Arana Start: 05-07-2012 Echocardiography JUNAID CELAYA MD Comment on above: EDF 60-65% Plan of Treatment Date Care Activity Detail Author Start: 01-19-2025 Egd balloon dilation esophagus <30 mm diam ESOPH EGD DILATION <30 MM [facility] Start: 01-19-2025 Esophagoscopy rigid transoral with biopsy ESOPHAGOSCP RIG TRNSO BIOPSY [facility] Start: 01-19-2025 Patient discharge [facility] Start: 01-13-2025 End: 01-13-2025 [facility] Patient Education ED Soft Diet E D Esophageal Foreign Body, Resolved [facility] Work Phone: [facility] Payers Date Payer Category Payer Self-pay 2025 Unknown [id number] 2025 Unknown [id number] 2018 Private Health Insurance [id number] 1995 Unknown [id number] [id number] Unknown [id number] 2.16.8 [id number] Unknown [id number] 2.16.8 [id number] Unknown [id number] 2.16.8 [id number] Unknown [id number] 2.16.8 [id number] Unknown [id number] 2.16.8 [id number] Unknown [id number] 2.16.8 [id number] Social History Date Type Detail Facility Start: 03-25-2019 End: 02-01-2025 Tobacco smoking status Never smoked tobacco (finding) [facility] Sexual Orientation [facility] Start: 03-20-2013 Sex Male (finding) [facility] Start: 1995 Sex Assigned At Male [facility] Sex Male [facility] Goals Date Patient Goal Desired Activity /State Mental Status Date Assessment Result Facility 01-19-2025 Cognitive function Voice/Name [facility] Work Phone: 01-13-2025 Cognitive function Level Of Cons ciousness Awake;Alert;Appropriate;Follow s Commands [facility] Work Phone: Clinical Notes 01-12-2025 to 02-01-2025 Note Date & Type Note Facility 02-01-2025 Progress note [facility] 02-01-2025 Progress note Note Date/Time February 01, 2025 2:22pm [facility] [address] [place] [address] OFFICE VISIT Date of Service: 02/01/25 MR#: [id number] Acct: [id number] Name: JOSE EDOUARD Rep #: [id number] : 1995 Provider: CHARLEY Soriano Age/Sex: 29/M Location: [facility] Status: Signed Intake Vital Signs 01/16/25 11:43 01/19/25 06:45 02/01/25 13:35 Height 6 ft 6 ft 6 ft Weight: 185 lb 2 oz BMI 25.1 BP 118/74 Respiration 16 Pulse 63 Temp 97.9 F Temp Source Temporal Pulse Oximetry (%) 97 Oxygen Delivery Method room air Intake Visit Reasons: TEST-Dysphagia Chief Complaint: trouble swallowing 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 Required: No Accompanied by: Self Is patient in pain?: No Allergies Penicillins Allergy (Mild, Verified 02/01/25 13:32) Nausea/Vom/Diarrhea Medications ?Medication ?Instructions ?Recorded ?Confirmed ?Type pantoprazole 40 mg tablet,delayed 40 mg PO BID #180 ta bs 02/01/25 02/01/25 Rx release [facility] Medical History Asthma History of esophageal dilatation Surgical History H/O esophagogastroduodenoscopy Social History Smoking Status: Never smoker HPI HPI Chief Complaint: trouble swallowing Details: OV 01/16/2025 29y/o male with history of esophageal stricture with previous dilation x2 presents with complaints of mid-upper esophageal dysphagia. Considering the patient's history of episodic dysphagia, plus a brother with a similar esophageal disorder, eosinophilic esophagitis (EOE) is suspected. Diagnosis will be confirmed with endoscopy. He was prescribed pantoprazole 20mg daily by ED andever started. He will start now and follow-up in the office post procedure. Patient Instructions: Soft food and liquids Start pantoprazole 20mg once daily EGD this week Follow-up in office 10-14 days post EGD to review results EGD 01/19/2025 - Squamous mucosa with up to 20 eosinophils per high power field - Resume previous diet. - Continue present medications. - Await pathology results. - Use Protonix (pantoprazole) 40 mg PO BID. - Start Dupixent The patient is a 29-year-old male presenting with Eosinophilic Esophagitis (EOE). The patient reports a history of esophageal dilations, initially occurring approximately 12 years ago, ostensibly believed to be secondary to acid reflux. Recurrence of dysphagia symptoms led to another dilation, during which biopsies revealed 20 eosinophils per high-powered field, confirming a diagnosis of EOE. Initially, the patient experienced difficulty swallowing and had episodes where food would become lodged in the esophagus, with bread being particularly problematic. Over time, the patient developed strategies for managing swallowingdifficulties, such as eating slowly to prevent obstruction. Compliance with pantoprazole usage has been inconsistent due to previous reliance on a 20 mg dose previously provided by the emergency department. Attempts to obtain a higher dosage prescription from a pharmacy were unsuccessful. The patient has a family history of similar esophageal issues. The patient adheres to conservative dietary adjustments, minimizing bread intaketo avoid exacerbation of symptoms. There is no family history of celiac disease. - still eating slow - nothing has gotten stuck since EGD - denies any family h/o celiac disease - post EGD was taking pantoprazole 20mg BID until he ran out - continues to avoid bread - drinks raw milk ROS Const Constitutional: Positive for weight change (loss); No fatigue or fever(s) ENT ENT: Positive for difficulty swallowing Gastro GI: Positive for difficulty swallowing; No abdominal pain, belching, bloating, change in bowel habits, change in stool character, coffee ground emesis, constipation, cramping, diarrhea, heartburn, feeling full early, excessive flatus, incontinent of stools, Vomiting blood/hematemesis, Blood in stool, loose stools, Black,tarry stools, nausea/dyspepsia, pain with swallowing, vomiting or other Musc Musculoskeletal: No joint pain Skin Skin: No yellowing of the eye or itchy eyes Psych Psychiatric: No anxiety and No depression Endo Endocrine: Positive for weight change (loss); No fatigue Aller/Imm Allergy/Immunologic: No itchy eyes Efrain/Lymp Hematologic/Lymphatic: No easy bleeding or easy bruising Exam Const General: cooperative, healthy appearing, no acute distress and well developed Nutritional Appearance: average body habitus and well nourished Orientation: alert and oriented x3 HENMT Head: normocephalic Ears: hearing grossly normal bilaterally Mouth: moist mucous membranes Teeth and gingiva: dentition normal Eyes Conjunctivae: conjunctivae normal Sclera: sclerae normal Neck Neck: normal visual inspection, full ROM and trachea midline Resp Effort & Inspection: normal respiratory effort, able to speak in complete sentences and symmetric chest movement Neuro General: patient alert and patient oriented x3 Cranial Nerves: other (CN's grossly intact, non-focal exam) Cognition: normal cognition Speech: speech normal Gait: normal gait Psych Appearance: grossly normal and well kempt Affect: normal affect Attitude: cooperative Thought Process: normal Assessment and Plan Assessment and Plan (1) Eosinophilic esophagitis: Status: Acute Orders: Referrals Allergy & Immunology Medications: New pantoprazole 40 mg PO BID 180 tabs 1RF Discontinued pantoprazole Discontinued Reason: Order Completed 20 mg PO DAILY 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 Biopsies confirmed 20 eosinophils/hpf. He has noted symptomatic relief post dilation but has been managing dysphagia with conservative dietary tactics. I have started him on pantoprazole 40mg BID and provided him a referral to Dr. Ramirez Amor. He will follow-up in three months for repeat EGD. Patient Instructions: Dr. Ramirez Amor - Allergy Immunology [address] [place] [id number] Start pantoprazole 40mg twice a day Consult with Dr. Amor EGD 12 weeks Follow-up in the office post EGD [email or web address] Coding Level of Care Code Off vis,est,level 3 Diagnoses Eosinophilic esophagitis K20.0 Clinical Quality Measures Smoking Screening Smoking Status: Never smoker 02/01/25 1530 <Electronically signed by Amy WHITEHEAD> Date _ Amy Clark Signature: Date (if applicable) CC: ~ [facility] Work Phone: 1(106) 349-956909-05-2025 Consult note [facility] Medical Records Department [address] [place] [address] Anesthesia Postop Eval I 01/19/25 0759 MR#: [id number] Acct: [id number] Name: JOSE EDOUARD Rep #:[id number] : 1995 29 From: Carlton Gay PCP: Care Physician,No Primary Status :[facility] [place] Race: C Location: [place] [address] Anesthesia: Postop Eval I Current Vital Signs Temperature: 97.7 F Pulse Rate: 97 Blood Pressure: 118/55 Respiratory Rate: 18 Pulse Ox: 93 Oxygen Delivery Method: Room Air Assessment Airway patent: Yes Spontaneous unlabored respirations: Yes Mental status: Awake nausea: No Vomiting: Yes Anesthesia Complication: Yes Anesthesia Complication Comment:: pt emesis immediately after scope removed, suctioned, lungs CTA but drop in O2 sat to low 90's% Fluid Hydration Crystalloid volume administer (ml): 400 Total IV fluid infused: 400 Progress Note Anesthesia document: Postop Eval 1 completed: Yes 01/19/25 0800 > Date _ Carlton Clark Signature: Date CC: ~ Signed [facility]09-05-2025 Procedure note [facility] Medical Records Department [address] [place] [address] EGD Report MR#: [id number] Acct: [id number] Name: JOSE EDOUARD Rep #:[id number] : 1995 29 From: Mahin Arteaga DO PCP: Care Physician,No Primary [facility] Patient Name: Jose Edouard Procedure Date: 01/19/2025 7:23 AM Date of : 1995 Age: 29 Procedure: Upper GI endoscopy Indications: Dysphagia Providers: Mahin Arteaga DO Referring MD: No Primary Care Physician Medicines: Monitored Anesthesia Care Patient Profile: This is a 29 year old male. Refer to note in patient chart for documentation of history and physical. Patient has symptoms of dysphagia with both liquids and solids. Complications: No immediate complications. Procedure: Pre-Anesthesia Assessment: - Prior to the procedure, a History and Physical was performed, and patient medications and allergies were reviewed. The patient is competent. The risks and benefits of the procedure and the sedation options and risks were discussed with the patient. All questions were answered and informed consent was obtained. Patient identification and proposed procedure were verified by the physician in the pre-procedure area. Mental Status Examination: alert and oriented. Airway Examination: normal oropharyngeal airway and neck mobility. Respiratory Examination: clear to auscultation. CV Examination: normal. Prophylactic Antibiotics: The patient does not require prophylactic antibiotics. Prior Anticoagulants: The patient has taken no anticoagulant or antiplatelet agents except for NSAID medication. ASA Grade Assessment: II - A patient with mild systemic disease. After reviewing the risks and benefits, the patient was deemed in satisfactory condition to undergo the procedure. The anesthesia plan was to use monitored anesthesia care (MAC). Immediately prior to administration of medications, the patient was re-assessed for adequacy to receive sedatives. The heart rate, respiratory rate, oxygen saturations, blood pressure, adequacy of pulmonary ventilation, and response to care were monitored throughout the procedure. The physical status of the patient was re-assessed after the procedure. After obtaining informed consent, the endoscope was passed under direct vision. Throughout the procedure, the patient's blood pressure, pulse, and oxygen saturations were monitored continuously. The Endoscope was introduced through the mouth, and advanced to the second part of duodenum. The upper GI endoscopy was accomplished without difficulty. The patient tolerated the procedure well. Scope In: 7:31:19 AM Scope Out: 7:40:42 AM Total Procedure Duration Time 0 hours 9 minutes 23 seconds Findings: Mucosal changes including ringed esophagus, feline appearance, longitudinal furrows, small-caliber esophagus, white plaques and circumferential folds were found in the entire esophagus. Esophageal findings were graded using the Eosinophilic Esophagitis Endoscopic Reference Score (EoE-EREFS) as: Edema Grade 1 Present (decreased clarity or absence of vascular markings), Rings Grade 3 Severe (distinct rings that do not permit passage of diagnostic 8-10 mm endoscope), Exudates Grade 1 Mild (scattered white lesions involving less than 10 percent of the esophageal surface area), Furrows Grade 1 Mild (vertical lines without visible depth) and Stricture present. Biopsies were obtained from the proximal and distal esophagus with cold forceps for histology of suspected eosinophilic esophagitis. A TTS dilator was passed through the scope. Dilation with a 15-16.5-18 mm balloon dilator was performed to 13 mm. The dilation site was examined and showed. Estimated blood loss was minimal. No gross lesions were noted in the entire examined stomach. No gross lesions were noted in the second portion of the duodenum. Impression: - Esophageal mucosal changes secondary to eosinophilic esophagitis. Dilated. - No gross lesions in the entire stomach. - No gross lesions in the second portion of the duodenum. - Biopsies were taken with a cold forceps for evaluation of eosinophilic esophagitis. Recommendation: - Discharge patient to home. - Resume previous diet. - Continue present medications. - Await pathology results. - Use Protonix (pantoprazole) 40 mg PO BID. - Start Dupixent Procedure Code(s): --- Professional --- 36798, Esophagogastroduodenoscopy, flexible, transoral; with transendoscopic balloon dilation of esophagus (less than 30 mm diameter) 63832, 59,51, Esophagogastroduodenoscopy, flexible, transoral; with biopsy, single or multiple CPT copyright 2021 [employer]. All rights reserved. The codes documented in this report are preliminary and upon firmware software verification engineer review may be revised to meet current compliance requirements. Mahin Arteaga DO 01/19/2025 7:47:11 AM This report has been signed electronically. Number of Addenda: 0 Note Initiated On: 01/19/2025 7:23 AM 01/19/25 0747 Date _ Mahin Loco Signature: Date (if indicated) CC: No Primary Care Physician; Mahin Arteaga DO ~ Date Dictated: 01/19/25722 Date Transcribed: Machinist Set Up: RF Signed [facility]09-05-2025 Procedure note [facility] Medical Records Department [address] [place] [address] Provation Physician Letter MR#: [id number] Acct: [id number] Name: JOSE EDOUARD Rep #:[id number] : 1995 29 From: Mahin Arteaga DO PCP: Care Physician,No Primary Status :[facility] 01/19/2025 No Primary Care Physician Re : Upper GI endoscopy procedure for Jose Javan Dear Care Physician This procedure was performed on Wednesday, January 19, 2025. My impressions and recommendations are as follows: Impressions : - Esophageal mucosal changes secondary to eosinophilic esophagitis. Dilated. - No gross lesions in the entire stomach. - No gross lesions in the second portion of the duodenum. - Biopsies were taken with a cold forceps for evaluation of eosinophilic esophagitis. Recommendations : - Discharge patient to home. - Resume previous diet. - Continue present medications. - Await pathology results. - Use Protonix (pantoprazole) 40 mg PO BID. - Start Dupixent My findings are described in the full procedure note, which is enclosed. If I can be of further assistance, please feel free to contact me at . Sincerely, Mahin Arteaga DO 01/19/2025 7:47:11 AM This report has been signed electronically. 01/19/25746 Date _ Mahin Loco Signature: Date (if indicated) CC: No Primary Care Physician; Mahin Arteaga DO ~ Date Dictated: 01/19/25722 Date Transcribed: Machinist Set Up: ALANA Signed [facility]09-05-2025 History and physical note [facility] Medical Records Department [address] [place] [address] History & Physical Exam 01/19/25 0716 MR#: [id number] Acct: [id number] Name: JOSE EDOUARD Rep #:[id number] : 1995 29 From: Mahin Arteaga DO PCP: Care Physician,No Primary Status :[facility] Location: [place] [address] HPI - General General Date of Admission: 01/19/25 Date of Service: 01/19/25 Chief Complaint: dysphagia HPI Narrative JOSE EDOUARD, is a 29 M who presents Chief Complaint: trouble swallowing Details: ER 01/14/2025 - [facility] Patient evaluated for sensation of food stuck in his esophagus and having a hardtime drinking little on eating. He was seen at [facility] yesterday wherehe was treated with glucagon and was able [...] bad when he is trying to swallow it.He is unable to drink a full glass of water. Discussed with him I do not have criteria for emergentendoscopy. Will start him on PPI therapy and give first dose in the emergency room. Will arrange for close outpatient GI follow-up with Dr. Arteaga's I do think he needs scoped urgently but I do not th ink he needs to come into the hospital for this or have an emergent scope given that he is able to tolerate liquids. Counseled that he canstick to liquid/soft diet. Discussed that if he can eat or drink something thicker and with water it goes down and he is not throwing it up that that is satisfactory for the short-term. Is given return precautions. At this time he is comfortable treating this conservatively. Discussedthat the other option would be transfer to have him scoped this weekend however we do not have GI on-call right now we cannot keep him here for that reason. He is given return precautions. Dischargedhome in stable condition. Given first dose of pantoprazole in the emergency room. 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 History of esophageal dilatation Home Medications ?Medication ?Instructions ?Recorded ?Last Taken ?Type pantoprazole 20 mg tablet,delayed 20 mg PO DAILY 01/1701/18/25 History release Allergy/AdvReac Type Severity Reaction Status Date / Time Penicillins Allergy Mild Nausea/Vom/ Verified 01/19/25 06:45 Diarrhea Surgical History H/O esophagogastroduodenoscopy Social History Smoking Status: Never smoker ROS Constitutional Constitutional: Denies fatigue, fever(s), poor appetite, weight gain or weight loss Gastrointestinal Gastrointestinal: Denies belching, bloating, change in bowel habits, change in stool character, chewing difficulty, coffee ground emesis, constipation, cramping, diarrhea, dyspepsia, dysphagia, earlysatiety, excessive flatus, fecalincontinence, heartburn, hematemesis, hematochezia, hemorrhoids, loose stools, melena, nausea, odynophagia, rectal bleeding, tenesmus, vomiting or weight changes Vital Signs Vital Signs Vital Signs: 01/19/25 06:45 01/19/25 06:45 01/19/25 07:13 Temperature 97.3 F L 97.3 F L Temperature Source Temporal Pulse Rate 62 62 Respiratory Rate 14 14 Respiratory Pattern Normal Blood Pressure 129/85 H 129/85 H Blood Pressure Mean 99 Blood Pressure Source Monitor Blood Pressure Position Semi-Fowlers Blood Pressure Location Left Arm Pulse Ox 99 99 Oxygen Delivery Method Room Air Room Air Weight Weight: 185 lb 3.013 oz Body Mass Index (BMI) 25.1 Physical Exam Const alert, oriented x3, no apparent distress and healthy appearing General Appearance: cooperative GI normal to inspection, nondistended, normoactive bowel sounds, soft to palpation,non-tender and non-distended Percussion: normal to percussion Rectal Exam: deferred Assessment & Plan Assessment/Plan (1) Dysphagia: (2) Difficulty swallowing liquids: (3) History of esophageal dilatation: PLAN: Assessment and Plan Assessment and Plan (1) Dysphagia: Status: Acute Orders: Orders EGD 01/19/25 R13.10 - Dysphagia, unspecified, Z98.890 - Other specified postprocedural states Medications: Discontinued pantoprazole (Protonix) Discontinued Reason: Pt no longer taking 20 mg PO DAILY 14 tabs 0RF Plan 29y/o male with history of esophageal stricture with previous dilation x2 presents with complaints of mid-upper esophageal dysphagia. Considering the patient's history of episodic dysphagia, plus a brother with a similar esophageal disorder, eosinophilic esophagitis (EOE) is suspected. Diagnosis aron lbe confirmed with endoscopy. He was prescribed pantoprazole 20mg daily by ED andever started. He will start now and follow-up in the office post procedure. Patient Instructions: Soft food and liquids Start pantoprazole 20mg once daily EGD this week Follow-up in office 10-14 days post EGD to review results 01/19/25 0719 Cosigner Signature (if applicable): CC: No Primary Care Physician; Mahin Arteaga DO~ Signed [facility]09-05-2025 [facility] Medical Records Department [address] [place] [address] History Physical Exam 01/19/25 0716 MR#: [id number] Acct: [id number] Name: JOSE EDOUARD Rep #: [id number] : 1995 29 From: Mahin Arteaga DO PCP: Care Physician,No Primary Status:[facility] Location: [place] [address] HPI - General General Date of Admission: 01/19/25 Date of Service: 01/19/25 Chief Complaint: dysphagia HPI Narrative JOSE EDOUARD, is a 29 M who presents Chief Complaint: trouble swallowing Details: ER 01/14/2025 - [facility] Patient evaluated for sensation of food stuck in his esophagus and having a hard time drinking little on eating. 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 [facility]LY [facility], [facility] Medical History Asthma History of esophageal dilatation Home Medications ???Medication ???Instructions ???Recorded ???Last Taken ???Type pantoprazole 20 mg tablet,delayed 20 mg PO DAILY 01/17/25 01/18/25 History release Allergy/AdvReac Type Severity Reaction Status Date / Time Penicillins Allergy Mild Nausea/Vom/ Verified 01/19/25 06:45 Diarrhea Surgical History H/O esophagogastroduodenoscopy Social History Smoking Status: Never smoker ROS Constitutional Constitutional: Denies fatigue, fever(s), poor appetite, weight gain or weight loss Gastrointestinal Gastrointestinal: Denies belching, bloating, change in bowel habits, change in stool character, chewing difficulty, coffee ground emesis, constipation, cramping, diarrhea, dyspepsia, dysphagia, early satiety, excessive flatus, fecal incontinence, heartburn, hematemesis, hematochezia, hemorrhoids, loose stools, melena, nausea, odynophagia, rectal bleeding, tenesmus, vomiting or weight changes Vital Signs Vital Signs Vital Signs: 01/19/25 06:45 01/19/25 06:45 01/19/25 07:13 Temperature 97.3 F L 97.3 F L Temperature Source Temporal Pulse Rate 62 62 Respiratory Rate 14 14 Respiratory Pattern Normal Blood Pressure 129/85 H 129/85 H Blood Pressure Mean 99 Blood Pressure Source Monitor Blood Pressure Pos (more content not included)...[facility] 01-19-2025 Consult note [facility] Medical Records Department [address] [place] [address] Pre-Anesthesia Evaluation 01/19/25 0706 MR#: [id number] Acct: [id number] Name: JOSE EDOUARD Rep #:[id number] : 1995 29 From: Papa Ying MD PCP: Care Physician,No Primary Status :[facility] Y Race: C Location: [place] [address] ASA Classification* ASA Classification ASA Classification: 1 Assessment & Plan Anesthesia* Anesthesia Assessment Anesthesia Assessment: Discussed sedation and/or anesthesia options, risks, benefits, and alternatives with patient/parents/legal guardian/POA. Questions invited. The patient/parents/legal guardian/POA seems to understand and agrees to proceedwith anesthesia plan. Reviewed the physical assessment, medical history, allergy history and patient home medications list prior to surgery/procedure/anesthetic and documented any changes. Performed airway and anesthesia risk assessments. Anesthesia Type Anesthesia Type: MAC History Source History Obtained from:: Patient and Chart Anesthesia Focused Assessment* Temperature: 97.3 F Pulse Rate: 62 Blood Pressure: 129/85 Respiratory Rate: 14 Pulse Ox: 99 Oxygen Delivery Method: Room Air Airway Assessment Mouth opens: >3 cm Mallampati Score: I Teeth Condition: Intact Neck Range of motion (ROM): Full ROM Labs Anesthesia Preop lab: CBC CHEMISTRY COAG Pre-Assessment Diagnosis/Proposed Procedure Planned Operative Procedure(s): EGD Anesthesia History Anesthesia History - manager pharmaceutical: Anesthesia History - manager pharmaceutical Hx Hospitalization No 01/17/25 11:39 Any Problems With Anesthesia No 01/17/25 11:39 Cholinesterase deficiency No 01/17/25 11:39 You/Your Family Experience No 01/17/25 11:39 fever (hyperthermia) with Relationship Recent Exposure to Contagious No 01/19/25 06:45 Disease Does patient have nerve No 01/17/25 11:39 stimulator Patient instructed to have device shut off --Does patient have Pacemaker No 01/19/25 06:45 or ICD? When Was Last Pacemaker Check QUESTION #4 FULL TEXT: You/Your Family Experience fever (hyperthermia) with Anesthesia Last Oral Intake Last Oral intake: Last Oral Intake NPO since 00:00 01/19/25 06:45 Meds taken in AM with sips of water? Meds patient instructed to take am of surgery Any additional information?: Yes NPO since: 05:30 (Patient had water at 5:30 AM.) Meds taken in AM with sips of water?: No PONV PONV - manager pharmaceutical: PONV - manager pharmaceutical Female No 01/17/25 11:39 HX of Motion Sickness No 01/17/25 11:39 HX of N/V After Surgery No 01/17/25 11:39 Non-Smoker Yes 01/17/25 11:39 Duration of Surgery greater No 01/17/25 11:39 than 60 minutes Number of Risk Factors 1 01/17/25 11:39 PONV Score Low Risk 01/17/25 11:39 Height & Weight Height & Weight: Anesthesia: Height & Weight Height 6 ft 01/19/25 06:45 Weight: 84 kg 01/19/25 06:45 Body Mass Index (BMI) 25.1 01/19/25 06:45 Respiratory Assessment Respiratory Assessment - manager pharmaceutical: Respiratory Tract Infection Hx - manager pharmaceutical Hx Respiratory Tract Infection No 01/17/25 11:39 STOP Sleep Apnea STOP Sleep Apnea - manager pharmaceutical: STOP Sleep Apnea - manager pharmaceutical Hx Hypertension No 01/17/25 11:39 Hx Sleep Apnea No 01/17/25 11:39 CPAP BIPAP Do you snore loudly (louder No 01/17/25 11:39 than talking or can be heard Do you often feel tired/ No 01/17/25 11:39 fatigued/ sleepy during daytime? Has anyone observed you stop No 01/17/25 11:39 breathing during sleep? STOP Results Negative 01/17/25 11:39 QUESTION #5 FULL TEXT : Do you snore loudly (louder than talking or can be heard through closeddoors)? 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 Specify any problems Hx of Preganancy in last 3 N/A 01/17/25 11:39 Months Nurse Filling Out Transfusion [email or web address] 01/17/25 11:39 & Questions: Date: 01/17/25 01/17/25 11:39 Time: 11:41 01/17/25 11:39 Patient unable to answer at this time (ie. confused, unrespo /Reproduction History /Reproductive History - manager pharmaceutical: /Reproductive Hx- manager pharmaceutical Hx Now Gestational Age (in weeks): EDC: Hx Hx Para Hx Section SAB Active Medications Active Medications: Current Medications Generic Name Dose Route Start Last Admin Trade Name Freq PRN Reason Stop Dose Admin Lactated Ringer's 1,000 mls @ 15 mls/hr 01/19/25 06:30 01/19/25 06:52 IV 15 mls/hr .Q48H ALEJANDRO Administration PFSH Medical History Asthma History of esophageal dilatation Home Medications ?Medication ?Instructions ?Recorded ?Last Taken ?Type pantoprazole 20 mg tablet,delayed 20 mg PO DAILY 01/1701/18/25 History release Allergy/AdvReac Type Severity Reaction Status Date / Time Penicillins Allergy Mild Nausea/Vom/ Verified 01/19/25 06:45 Diarrhea Surgical History H/O esophagogastroduodenoscopy Social History Smoking Status: Never smoker Review of Systems (Anesthesia) ROS Narrative System reviewed and no additional complaints, except as documented. 01/19/25712 sabino BANG> Date _ Papa Ying MD Cosigner Signature: Date CC: ~ Signed [facility]09-02-2025 Evaluation note* Diagnosis Onset Date Resolution Status Admit Date Dysphagia acute January 16, 2025 11:32am Difficulty swallowing liquids acute January 19, 2025 6:20am Dysphagia acute January 19, 2025 6:20am History of esophageal dilatation acute January 19, 025 6:20am [facility] Work Phone: 1(481) 465-926009-02-2025 Evaluation note* Diagnosis Onset Date Resolution Status Admit Date Dysphagia acute January 16, 2025 11:32am Dysphagia acute January 19, 2025 6:20am Difficulty swallowing liquids inacti ve January 19, 2025 6:20am History of esophageal dilatation inactive January 19, 2 025 6:20am Eosinophilic esophagitis acute February 01, 2025 1:24pm [place] [employer] [facility] Work Phone: 1(295) 743-355008-30-2025 Chief complaint+Reason for visit Narrative * Chief Complaint Admit Date FOREIGN BODY January 13, 2025 9: 06pm Referral from ED January 16, 2025 11:32am [place] [employer] [facility] Work Phone: 1(161) 870-565208-30-2025 Chief complaint+Reason for visit Narrative * Chief Complaint Admit Date FOREIGN BODY January 13, 2025 9: 06pm Referral from ED January 16, 2025 11:32am Reason for Visit Admit Date Dysphagia January 16, 2025 11:32am Difficulty swallowing liquids January 19, 2025 6:20am Dysphagia January 19, 2025 6:20am History of esophageal dilatation [facility] [place] 6:20am [facility] Work Phone: 1(704) 946-375908-30-2025 Chief complaint+Reason for visit Narrative * Chief Complaint Admit Date FOREIGN BODY January 13, 2025 9: 06pm Referral from ED January 16, 2025 11:32am TEST-Dysphagia February 01, 2025 1:24pm Reason for Visit Admit Date Dysphagia January 16, 2025 11:32am Dysphagia January 19, 2025 6:20am Difficulty swallowing liquids January 19, 2025 6:20am History of esophageal dilatation [facility] [place] 6:20am Eosinophilic esophagitis February 01, 2025 1:24pm [facility] Work Phone: 1(731) 600-590408-29-2025 Hospital Discharge instructions Patient Education 01/12/2025 11:42:18 Treating Dysphagia [...] Take all medicines as directed. You also canhelp lessen your dysphagia symptoms by being careful [...] swallowing solid foods, you can use a director of valuation to mash or pur e them. Thicken liquids with milk, juice, broth, gravy, or starch to make swallowing easier. Your healthcare provider may recommend that you have an evaluation or sessions with a speech or occupational therapist. These specialists in dysphagia may give you exercises and instructions to help you eat safely. [phone] [employer]. [address] [place] [address]. All rights reserved. This information is not intended as a substitute for professional medical care. Always follow yourhealthcare professional's instructions. Follow Up Care 01/12/2025 10:02:33 With:EHLAM ARANA MD Address: [facility] [address] [address]- [phone] When:1-2 days [facility] 08-29-2025 Note Discharge Instructions Thank you for allowing [facility] to assist you with your healthcare needs. The following is importantdischarge information regarding your hospital visit. Diagnosis from Today's Visit Dysphagia What to Do Next Instructions from Your Care Team No qualifying data available. Post Acute Orders No qualifying data available. You Need to Schedule the Following Appointments Follow Up with ELHAM ARANA MD When:Within 1-2 days Where:[address] [address] [phone] Allergies penicillins Nausea Medications Please ask your primary doctor or pharmacist before taking any other medication not listed, including over the counter drugs, herbal medications, vitamins and or supplements as they may interact withyour home medications. What How Much When Instructions [...] Take all medicines as directed. You also canhelp lessen your dysphagia symptoms by being careful [...] swallowing solid foods, you can use a director of valuation to mash or pur e them. Thicken liquids with milk, juice, broth, gravy, or starch to make swallowing easier. Your healthcare provider may recommend that you have an evaluation or sessions with a speech or occupational therapist. These specialists in dysphagia may give you exercises and instructions to help you eat safely. [phone] [employer]. [address] [place] [address]. All rights reserved. This information is not intended as a substitute for professional medical care. Always follow yourhealthcare professional's instructions. Additional Information VACCINATE! IT SAVES LIVES! Members of the community who have not yet received the COVID-19 vaccine and would like to receive it can visit one of [facility] vaccine clinics. There are many vaccine clinic locations within the [facility]. For locations and available times, please visit www.[email or web address].[email or web address]/. It is important to note that some COVID mobile vaccine clinics are held outdoors and may be canceled in rainy or stormy conditions. To learn more about pediatric vaccinations (ages 5-11), we invite you to visit the [facility] webpage. https://www.[facility].org/pages/8160-Dmjog-Uxgpuufhkll-Uxokswshns-Mditk-Xup stions.htmlTo learn more about the COVID-19 vaccine, we invite you to visit the CDC website for a list of frequently asked questions. https://www.cdc.gov/coronavirus/2019-ncov/vaccines/faq.html [facility] Patient Portal Access Instructions: Stay connected with your healthcare team and access your personal medical information anytime with the [facility] Patient Portal. If you would like a full copy of your medical records please contact the [facility] Medical Records Department Wednesday through Wednesday between 8a.m. and 4:30p.m. Please follow the directions below to access the portal: 1.Access the email account you provided upon registration to the [facility].2.Look for an invitation email from [facility].3.Open the email and access the invitation link: Accept Invitation to [facility]4.Fill in the required perez to create your account. Sign into www.[employer] with your username and password that you [...] you will allow to register on the [facility] Patient Portal for access to your information. You can also access the [facility] Patient Portal on the [employer]. Simply click on Health Records under [employer] and then click on the [employer] logo. HOW TO SAFELY DISPOSE OF PRESCRIPTION MEDICATIONS Please use one of the following methods to safely dispose of your unused medications. 1.Use a drug disposal kit: the drug disposal pouch allows you to safely discard your old and unuseddrugs. Ask your nurse to give you one when you are discharged.2.Visit a local take-back location: Many local pharmacies and police departments have programs that collect old and unwanted prescriptiondrugs. Call your local pharmacy or go to http://[employer]/4J2Pw0x to find one close to you.3.Make use of household items: Use cat litter or old coffee grounds to dispose medications if other options arenot available. Mix your drugs with these household products, seal them in an airtight container andthrow it into the garbage. Call [facility]: [phone] to be sure your drugs can be [...] drowsiness, such as benzodiazepines, also known as benzos,including diazepam and alprazolam, muscle relaxants or sleep aids. Never sell or share prescriptionopioids. This is illegal. Store opioids in a secure place and out of reach of others (including children, family, friends and visitors). The last page(s) of this document has been signed and retained as a CHART COPY Signatures Patient Education Materials Treating Dysphagia Medication Leaflets My discharge plan and instructions have been reviewed and explained to me and IJAVAN KORIE J understand my current condition and have read and understand these discharge instructions. I have received a written copy of the plan/instructions. If I have questions, I am aware that I should contactmy doctor. 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: Date/Time: Relationship to Patient: Witness Name/Signature: Date/Time: [facility] note Author Papa Ying [facility] Note Date/Time January 19, 2025 7:13am [facility] Medical Records Department [address] [facility] [place] [address] Pre-Anesthesia Evaluation 01/19/25 0706 MR#: [id number] Acct: [id number] Name: JOSE EDOUARD Rep #:[id number] : 1995 29 From: Papa Ying MD PCP: Care Physician,No Primary Status :[facility] Y Race: C Location: [place] [address] ASA Classification* ASA Classification ASA Classification: 1 Assessment & Plan Anesthesia* Anesthesia Assessment Anesthesia Assessment: Discussed sedation and/or anesthesia options, risks, benefits, and alternatives with patient/parents/legal guardian/POA. Questions invited. The patient/parents/legal guardian/POA seems to understand and agrees to proceedwith anesthesia plan. Reviewed the physical assessment, medical history, allergy history and patient home medications list prior to surgery/procedure/anesthetic and documented any changes. Performed airway and anesthesia risk assessments. Anesthesia Type Anesthesia Type: MAC History Source History Obtained from:: Patient and Chart Anesthesia Focused Assessment* Temperature: 97.3 F Pulse Rate: 62 Blood Pressure: 129/85 Respiratory Rate: 14 Pulse Ox: 99 Oxygen Delivery Method: Room Air Airway Assessment Mouth opens: >3 cm Mallampati Score: I Teeth Condition: Intact Neck Range of motion (ROM): Full ROM Labs Anesthesia Preop lab: CBC CHEMISTRY COAG Pre-Assessment Diagnosis/Proposed Procedure Planned Operative Procedure(s): EGD Anesthesia History Anesthesia History - manager pharmaceutical: Anesthesia History - manager pharmaceutical Hx Hospitalization No 01/17/25 11:39 Any Problems With Anesthesia No 01/17/25 11:39 Cholinesterase deficiency No 01/17/25 11:39 You/Your Family Experience No 01/17/25 11:39 fever (hyperthermia) with Relationship Recent Exposure to Contagious No 01/19/25 06:45 Disease Does patient have nerve No 01/17/25 11:39 stimulator Patient instructed to have device shut off --Does patient have Pacemaker No 01/19/25 06:45 or ICD? When Was Last Pacemaker Check QUESTION #4 FULL TEXT: You/Your Family Experience fever (hyperthermia) with Anesthesia Last Oral Intake Last Oral intake: Last Oral Intake NPO since 00:00 01/19/25 06:45 Meds taken in AM with sips of water? Meds patient instructed to take am of surgery Any additional information?: Yes NPO since: 05:30 (Patient had water at 5:30 AM.) Meds taken in AM with sips of water?: No PONV PONV - manager pharmaceutical: PONV - manager pharmaceutical Female No 01/17/25 11:39 HX of Motion Sickness No 01/17/25 11:39 HX of N/V After Surgery No 01/17/25 11:39 Non-Smoker Yes 01/17/25 11:39 Duration of Surgery greater No 01/17/25 11:39 than 60 minutes Number of Risk Factors 1 01/17/25 11:39 PONV Score Low Risk 01/17/25 11:39 Height & Weight Height & Weight: Anesthesia: Height & Weight Height 6 ft 01/19/25 06:45 Weight: 84 kg 01/19/25 06:45 Body Mass Index (BMI) 25.1 01/19/25 06:45 Respiratory Assessment Respiratory Assessment - manager pharmaceutical: Respiratory Tract Infection Hx - manager pharmaceutical Hx Respiratory Tract Infection No 01/17/25 11:39 STOP Sleep Apnea STOP Sleep Apnea - manager pharmaceutical: STOP Sleep Apnea - manager pharmaceutical Hx Hypertension No 01/17/25 11:39 Hx Sleep Apnea No 01/17/25 11:39 CPAP BIPAP Do you snore loudly (louder No 01/17/25 11:39 than talking or can be heard Do you often feel tired/ No 01/17/25 11:39 fatigued/ sleepy during daytime? Has anyone observed you stop No 01/17/25 11:39 breathing during sleep? STOP Results Negative 01/17/25 11:39 QUESTION #5 FULL TEXT : Do you snore loudly (louder than talking or can be heard through closed doors)? 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 Specify any problems Hx of Preganancy in last 3 N/A 01/17/25 11:39 Months Nurse Filling Out Transfusion [email or web address] 01/17/25 11:39 & Questions: Date: 01/17/25 01/17/25 11:39 Time: 11:41 01/17/25 11:39 Patient unable to answer at this time (ie. confused, unrespo /Reproduction History /Reproductive History - manager pharmaceutical: /Reproductive Hx- manager pharmaceutical Hx Now Gestational Age (in weeks): EDC: Hx Hx Para Hx Section SAB Active Medications Active Medications: Current Medications Generic Name Dose Route Start Last Admin Trade Name Freq PRN Reason Stop Dose Admin Lactated Ringer's 1,000 mls @ 15 mls/hr 01/19/25 06:30 01/19/25 06:52 IV 15 mls/hr .Q48H ALEJANDRO Administration PFSH Medical History Asthma History of esophageal dilatation Home Medications ?Medication ?Instructions ?Recorded ?Last Taken ?Type pantoprazole 20 mg tablet,delayed 20 mg PO DAILY 01/1701/18/25 History release Allergy/AdvReac Type Severity Reaction Status Date / Time Penicillins Allergy Mild Nausea/Vom/ Verified 01/19/25 06:45 Diarrhea Surgical History H/O esophagogastroduodenoscopy Social History Smoking Status: Never smoker Review of Systems (Anesthesia) ROS Narrative System reviewed and no additional complaints, except as documented. 01/19/25 0713 <Electronically signed by Papa gallo MD> Date _ Papa Greggignvicky Signature: Date CC: ~ Signed [facility] Work Phone: Consult note Author Carlton Gay [facility] Note Date/Time January 19, 2025 8:00am [facility] Medical Records Department [address] [place] [address] [place] [address] Anesthesia Postop Eval I 01/19/25 0759 MR#: [id number] Acct: [id number] Name: NINAJOSE MCKEON KANDACE Rep #:[id number] : 1995 29 From: Carlton Gay PCP: Care Physician,No Primary Status :[facility] Y Race: C Location: [place] [address] Anesthesia: Postop Eval I Current Vital Signs Temperature: 97.7 F Pulse Rate: 97 Blood Pressure: 118/55 Respiratory Rate: 18 Pulse Ox: 93 Oxygen Delivery Method: Room Air Assessment Airway patent: Yes Spontaneous unlabored respirations: Yes Mental status: Awake nausea: No Vomiting: Yes Anesthesia Complication: Yes Anesthesia Complication Comment:: pt emesis immediately after scope removed, suctioned, lungs CTA but drop in O2 sat to low 90's% Fluid Hydration Crystalloid volume administer (ml): 400 Total IV fluid infused: 400 Progress Note Anesthesia document: Postop Eval 1 completed: Yes 01/19/25 0800 <Electronically signed by Carlton Gay > Date _ Carlton Clark Signature: Date CC: ~ Signed [facility] Work Phone: Evaluation + Plan note No data available for this section [facility] Evaluation noteNo assessment information available [facility] Work Phone: History and physical note Author Mahin Arteaga [facility] Note Date/Time January 19, 2025 7:19am [facility] Medical Records Department [address] [place] [address] History & Physical Exam 01/19/25 0716 MR#: [id number] Acct: [id number] Name: JOSE EDOUARD Rep #:[id number] : 1995 29 From: Mahin Arteaga DO PCP: Care Physician,No Primary Status :[facility] Location: [place] [address] HPI - General General Date of Admission: 01/19/25 Date of Service: 01/19/25 Chief Complaint: dysphagia HPI Narrative JOSE EDOUARD, is a 29 M who presents Chief Complaint: trouble swallowing Details: ER 01/14/2025 - [facility] Patient evaluated for sensation of food stuck in his esophagus and having a hardtime drinking little on eating. He was seen at [facility] yesterday wherehe was treated with glucagon and was able [...] able to tolerate liquids. Counseled that he canstick to liquid/soft diet. 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 [facility]LY [facility], [facility] Medical History Asthma History of esophageal dilatation Home Medications ?Medication ?Instructions ?Recorded ?Last Taken ?Type pantoprazole 20 mg tablet,delayed 20 mg PO DAILY 01/1701/18/25 History release Allergy/AdvReac Type Severity Reaction Status Date / Time Penicillins Allergy Mild Nausea/Vom/ Verified 01/19/25 06:45 Diarrhea Surgical History H/O esophagogastroduodenoscopy Social History Smoking Status: Never smoker ROS Constitutional Constitutional: Denies fatigue, fever(s), poor appetite, weight gain or weight loss Gastrointestinal Gastrointestinal: Denies belching, bloating, change in bowel habits, change in stool character, chewing difficulty, coffee ground emesis, constipation, cramping, diarrhea, dyspepsia, dysphagia, early satiety, excessive flatus, fecalincontinence, heartburn, hematemesis, hematochezia, hemorrhoids, loose stools, melena, nausea, odynophagia, rectal bleeding, tenesmus, vomiting or weight changes Vital Signs Vital Signs Vital Signs: 01/19/25 06:45 01/19/25 06:45 01/19/25 07:13 Temperature 97.3 F L 97.3 F L Temperature Source Temporal Pulse Rate 62 62 Respiratory Rate 14 14 Respiratory Pattern Normal Blood Pressure 129/85 H 129/85 H Blood Pressure Mean 99 Blood Pressure Source Monitor Blood Pressure Position Semi-Fowlers Blood Pressure Location Left Arm Pulse Ox 99 99 Oxygen Delivery Method Room Air Room Air Weight Weight: 185 lb 3.013 oz Body Mass Index (BMI) 25.1 Physical Exam Const alert, oriented x3, no apparent distress and healthy appearing General Appearance: cooperative GI normal to inspection, nondistended, normoactive bowel sounds, soft to palpation,non-tender and non-distended Percussion: normal to percussion Rectal Exam: deferred Assessment & Plan Assessment/Plan (1) Dysphagia: (2) Difficulty swallowing liquids: (3) History of esophageal dilatation: PLAN: Assessment and Plan Assessment and Plan (1) Dysphagia: Status: Acute Orders: Orders EGD 01/19/25 R13.10 - Dysphagia, unspecified, Z98.890 - Other specified postprocedural states Medications: Discontinued pantoprazole (Protonix) Discontinued Reason: Pt no longer taking 20 mg PO DAILY 14 tabs 0RF Plan 29y/o male with history of esophageal stricture with previous dilation x2 presents with complaints of mid-upper esophageal dysphagia. Considering the patient's history of episodic dysphagia, plus a brother with a similar esophageal disorder, eosinophilic esophagitis (EOE) is suspected. Diagnosis willbe confirmed with endoscopy. He was prescribed pantoprazole 20mg daily by ED andever started. He will start now and follow-up in the office post procedure. Patient Instructions: Soft food and liquids Start pantoprazole 20mg once daily EGD this week Follow-up in office 10-14 days post EGD to review results 01/19/25 0719 <Electronically signed by Mahin Arteaga DO> Cosigner Signature (if applicable): CC: No Primary Care Physician; Mahin Arteaga, ~ Signed [facility] Work Phone: Hospital Discharge instructionsAdditional Instructions Follow-up with the GI specialist as scheduled. Continue to push fluids and drink protein shakes. Advance her diet as tolerated. If you are not able to keep fluids down, develop fever or severe pain/further concerns please do not hesitate to return to the emergency room. [facility] Work Phone: Hospital Discharge instructionsAmbulatory Orders* Allergy & Immunology Location: None Selected [facility] Work Phone: Reason for referral (narrative)No reason for referral information [facility] Work Phone: Chief Complaint and Reason for Visit Chief Complaint Admit Date FOREIGN BODY January 13, 2025 9: 06pm Advance Directives No Advanced Directives Records Found Advance Directive Response Recorded Date/ Time Do you have a Healthcare Power of School Community Relations Coordinator? No January 13, 2025 9:12pm Advance Directive Response Recorded Date/ Time Do you have a Healthcare Power of School Community Relations Coordinator? No January 13, 2025 9:12pm Do you have a Healthcare Power of School Community Relations Coordinator? No January 17, 2025 11:39am Summary Purpose Family History No Family History [...] January 16, 2025 End: January 16, 2025 Team Status: Inactive Member Role/Relationship Status Dates No Primary Care Physician Primary Care Provider Active Start: January 13, 2025 End: January 13, 2025 Dr. Carolin Hoyos DO Attending Provider Active Start: January 13, 2025 End: January 13, 2025 Dr. Carolin Hoyos DO Emergency Provider Active Start: January 13, 2025 End: January 13, 2025 Team Status: Inactive Member Role/Relationship Status Dates No Primary Care Physician Primary Care Provider Active Start: January 19, 2025 End: January 19, 2025 No Primary Care Physician Referring Provider Active Start: January 19, 2025 End: January 19, 2025 Dr. Mahin Arteaga DO Attending Provider Active Start: January 19, 2025 End: January 19, 2025 Team Status: Active Member Role/Relationship Status Dates No Primary Care Physician Primary Care Provider Active Start: January 19, 2025 No Primary Care Physician Referring Provider Active Start: January 19, 2025 Dr. Mahin Arteaga DO Attending Provider Active Start: January 19, 2025 Dr. Mahin Arteaga DO Other Provider Active St art: January 19, 2025 Team Status: Active Member Role/Relationship Status Dates No Primary Care Physician Primary care physician Activ e Team Status: Inactive Member Role/Relationship Status Dates No Primary Care Physician Primary care physician Activ e Start: January 13, 2025 End: January 13, 2025 Dr. Carolin Hoyos DO Attending physician Active Start: January 13, 2025 End: January 13, 2025 Dr. Carolin Hoyos DO Emergency Depart ent Physician Active Start: January 13, 2025 End: January 13, 2025 Team Status: Inactive Member Role/Relationship Status Dates No Primary Care Physician Primary care physician Activ e Start: January 16, 2025 End: January 16, 2025 No Primary Care Physician Referring Provider Active Start: January 16, 2025 End: January 16, 2025 CHARLEY Olivas Attending physician Active Start: January 16, 2025 End: January 16, 2025 Team Status: Inactive Member Role/Relationship Status Dates No Primary Care Physician Primary care physician Activ e Start: January 19, 2025 End: January 19, 2025 No Primary Care Physician Referring Provider Active Start: January 19, 2025 End: January 19, 2025 Dr. Mahin Arteaga , Attending physician Active Start: January 19, 2025 End: January 19, 2025 Team Status: Active Member Role/Relationship Status Dates No Primary Care Physician Primary care physician Activ e Start: January 19, 2025 No Primary Care Physician Referring Provider Active Start: January 19, 2025 Dr. Mahin Arteaga , Attending physician Active Start: January 19, 2025 Dr. Mahin Arteaga , DO Nurse Practitioner Active Start: January 19, 2025 Team Status: Inactive Member Role/Relationship Status Dates No Primary Care Physician Primary care physician Activ e Start: February 01, 2025 End: February 01, 2025 No Primary Care Physician Referring Provider Active Start: February 01, 2025 End: February 01, 2025 CHARLEY Olivas Attending physician Active Start: February 01, 2025 End: February 01, 2025 Goals (unrecognized section and content) Goals may be documented in a n alternate section (unrecognized sect ion and content) No Status Records FoundNo Status Records Found INFORMATION SOURCE (unrecogn ized section and content) DATE CREATED AUTHOR 01/20/2025 [facility] DATE CREATED AUTHOR AUTHOR'S ANDREI IZAGUIRRE 02/18/2025 [facility] FOR RECORDS PERTAINING TO PATIENTS WHO ARE [...] BE BASED ON THE PRIMARY CLINICAL RECORDS. [employer] provides no warranty or guarantee of the accuracy or completeness of information in this document.
[2025-05-02] MEDS: Lactated Ringers 1,000 ML 15 ML IV (07:11)
--- NOTE | 2025-05-02 07:39 | PRE.ANES_ITS ---
ASA Classification* ASA Classification ASA Classification: 2 Assessment & Plan Anesthesia* Anesthesia Assessment Anesthesia Assessment: Discussed sedation and/or anesthesia options, risks, benefits, and alternatives with patient/parents/legal guardian/POA. Questions invited. The patient/parents/legal guardian/POA seems to understand and agrees to proceed with anesthesia plan. Reviewed the physical assessment, medical history, allergy history and patient home medications list prior to surgery/procedure/anesthetic and documented any changes. Performed airway and anesthesia risk assessments. Anesthesia Type Anesthesia Type: MAC History Source History Obtained from:: Patient and Chart Anesthesia Focused Assessment* Temperature: 98.5 F Pulse Rate: 70 Blood Pressure: 133/86 Respiratory Rate: 16 Pulse Ox: 100 Oxygen Delivery Method: Room Air Airway Assessment Mouth opens: >3 cm Mallampati Score: I Teeth Condition: Intact Neck Range of motion (ROM): Full ROM Labs Anesthesia Preop lab: CBC CHEMISTRY COAG Pre-Assessment Diagnosis/Proposed Procedure Planned Operative Procedure(s): EGD Anesthesia History Anesthesia History - medical record specialist: Anesthesia History - medical record specialist Hx Hospitalization No 05/01/25 08:38 Any Problems With Anesthesia No 05/01/25 08:38 Cholinesterase deficiency No 05/01/25 08:38 You/Your Family Experience No 05/01/25 08:38 fever (hyperthermia) with Relationship Recent Exposure to Contagious No 05/02/25 07:08 Disease Does patient have nerve No 05/01/25 08:38 stimulator Patient instructed to have device shut off --Does patient have Pacemaker No 05/02/25 07:08 or ICD? When Was Last Pacemaker Check QUESTION #4 FULL TEXT: You/Your Family Experience fever (hyperthermia) with Anesthesia Last Oral Intake Last Oral intake: Last Oral Intake NPO since 21:00 05/02/25 07:08 Meds taken in AM with sips of No 05/02/25 07:08 water? Meds patient instructed to take am of surgery PONV PONV - medical record specialist: PONV - medical record specialist Female No 05/01/25 08:38 HX of Motion Sickness No 05/01/25 08:38 HX of N/V After Surgery No 05/01/25 08:38 Non-Smoker Yes 05/01/25 08:38 Duration of Surgery greater No 05/01/25 08:38 than 60 minutes Number of Risk Factors 1 05/01/25 08:38 PONV Score Low Risk 05/01/25 08:38 Height & Weight Height & Weight: Anesthesia: Height & Weight Height 6 ft 05/02/25 07:08 Weight: 86 kg 05/02/25 07:08 Body Mass Index (BMI) 25.7 05/02/25 07:08 Respiratory Assessment Respiratory Assessment - medical record specialist: Respiratory Tract Infection Hx - medical record specialist Hx Respiratory Tract Infection No 05/01/25 08:38 STOP Sleep Apnea STOP Sleep Apnea - medical record specialist: STOP Sleep Apnea - medical record specialist Hx Hypertension No 05/01/25 08:38 Hx Sleep Apnea No 05/01/25 08:38 CPAP BIPAP Do you snore loudly (louder No 05/01/25 08:38 than talking or can be heard Do you often feel tired/ No 05/01/25 08:38 fatigued/ sleepy during daytime? Has anyone observed you stop No 05/01/25 08:38 breathing during sleep? STOP Results Negative 05/01/25 08:38 QUESTION #5 FULL TEXT : Do you snore loudly (louder than talking or can be heard through closed doors)? Tobacco Use History Tobacco Use History - medical record specialist: Tobacco Use History - medical record specialist Tobacco Use Smoking Status Never smoker 05/01/25 08:38 Hx Tobacco Use No 05/01/25 08:38 Years Smoking Packs Smoked per Day Smoking Cessation Date was within the last 15 years Hx Smoking Cessation Date Hx Smoking Cessation Counseling Hematologic Medial History Hematologic Hx - medical record specialist: Hematologic Medical Hx - surgery scheduling coordinator Hx of Blood Transfusion No 05/01/25 08:38 Hx of Transfusion in last 3 No 05/01/25 08:38 Months Date of Last Transfusion (if within last 3 months) Ever experience any problems No 05/01/25 08:38 with transfusion(s)? Specify any problems Hx of Preganancy in last 3 N/A 05/01/25 08:38 Months Nurse Filling Out Transfusion VCHRISTIN 05/01/25 08:38 & Questions: Date: 05/01/25 05/01/25 08:38 Time: 08:39 05/01/25 08:38 Patient unable to answer at this time (ie. confused, unrespo /Reproduction History /Reproductive History - medical record specialist: /Reproductive Hx- medical record specialist Hx Now No 05/01/25 08:38 Gestational Age (in weeks): EDC: Hx Hx Para Hx Section SAB No 05/01/25 08:38 Does the father of the baby or his family experience fever w Father of the baby Malignant Hypertension history comment Active Medications Active Medications: Current Medications Generic Name Dose Route Start Last Admin Trade Name Freq PRN Reason Stop Dose Admin Lactated Ringer's 1,000 mls @ 15 mls/hr 05/02/25 07:00 05/02/25 07:11 IV 15 mls/hr .Q48H ALEJANDRO Administration PFSH Medical History (Updated 05/01/25 @ 08:38 by Brenda Moreno) Non-smoker Asthma History of esophageal dilatation Home Medications ?Medication ?Instructions ?Recorded ?Last Taken ?Type pantoprazole 40 mg tablet,delayed 40 mg PO BID #180 ta bs 02/01/25 05/01/25 Rx release Allergy/AdvReac Type Severity Reaction Status Date / Time Penicillins Allergy Mild Nausea/Vom/ Verified 05/02/25 07:07 Diarrhea Surgical History (Updated 05/01/25 @ 08:38 by Brenda Moreno) H/O esophagogastroduodenoscopy Social History Smoking Status: Never smoker Review of Systems (Anesthesia) ROS Narrative System reviewed and no additional complaints, except as documented. Physical Exam Resp clear to auscultation bilaterally
--- NOTE | 2025-05-02 08:00 | EGD_PTH ---
PATIENT: RICHY ZUNIGA LOC: EN U#:[id number] AGE/SX: 30/M ROOM: RE05/02/[address]: Dr. Mahin Arteaga DO : 1995 BED: DIS: 05/02/2025 SPEC #: [id number] RECD: 05/02/25 09:13 STATUS: YUE MYRIAM #: [id number] DAVID: 05/02/25 08:[address]: Mahin Arteaga DEPT: SURGICAL PATHOLOGY RECD BY: Jared Parekh ENTERED: 05/02/25 15:38 SP TYPE: EGD BIOPSY OT DR: Awilda Primary Care Phys Tissues: A - Esophagus, NOS Procedures: Surgery Specimen Level IV HEADER OPERATION: EGD, biopsy PRE-OP DIAGNOSIS: Eosinophilic esophagitis, dysphagia TISSUE SUBMITTED: A- Random esophagus biopsy MICROSCOPIC DIAGNOSIS A. Esophagus, random, biopsy: Squamous mucosa with reactive changes. 40 eosinophils per high power field. MICROSCOPIC DESCRIPTION Slides are reviewed. GROSS DESCRIPTION A. Received in fixative is one container labeled with the patient's name and designated Random esophagus biopsy. The specimen consists of multiple irregular fragments of sevilla tissue that in aggregate measure 1.5 x 0.6 x 0.1 cm. The specimen is totally submitted in one cassette. PA 05/02/2025 CPT:00167
--- NOTE | 2025-05-02 08:27 | HP.PCM_ITS ---
HPI - General General Date of Admission: 05/02/25 Date of Service: 05/02/25 Chief Complaint: Dysphagia HPI Narrative RICHY ZUNIGA, is a 30 M who presents [Chief Complaint: trouble swallowing Details: OV 01/16/2025 29y/o male with history of esophageal stricture with previous dilation x2 presents with complaints of mid-upper esophageal dysphagia. Considering the patient's history of episodic dysphagia, plus a brother with a similar esophageal disorder, eosinophilic esophagitis (EOE) is suspected. Diagnosis will be confirmed with endoscopy. He was prescribed pantoprazole 20mg daily by ED and ever started. He will start now and follow-up in the office post procedure. Patient Instructions: Soft food and liquids Start pantoprazole 20mg once daily EGD this week Follow-up in office 10-14 days post EGD to review results EGD 01/19/2025 - Squamous mucosa with up to 20 eosinophils per high power field - Resume previous diet. - Continue present medications. - Await pathology results. - Use Protonix (pantoprazole) 40 mg PO BID. - Start Dupixent The patient is a 29-year-old male presenting with Eosinophilic Esophagitis (EOE). The patient reports a history of esophageal dilations, initially occurring approximately 12 years ago, ostensibly believed to be secondary to acid reflux. Recurrence of dysphagia symptoms led to another dilation, during which biopsies revealed 20 eosinophils per high-powered field, confirming a diagnosis of EOE. Initially, the patient experienced difficulty swallowing and had episodes where food would become lodged in the esophagus, with bread being particularly problematic. Over time, the patient developed strategies for managing swallowing difficulties, such as eating slowly to prevent obstruction. Compliance with pantoprazole usage has been inconsistent due to previous reliance on a 20 mg dose previously provided by the emergency department. Attempts to obtain a higher dosage prescription from a pharmacy were unsuccessful. The patient has a family history of similar esophageal issues. The patient adheres to conservative dietary adjustments, minimizing bread intake to avoid exacerbation of symptoms. There is no family history of celiac disease. - still eating slow - nothing has gotten stuck since EGD - denies any family h/o celiac disease - post EGD was taking pantoprazole 20mg BID until he ran out - continues to avoid bread - drinks raw milk [facility] Medical History Non-smoker Asthma History of esophageal dilatation Home Medications ?Medication ?Instructions ?Recorded ?Last Taken ?Type pantoprazole 40 mg tablet,delayed 40 mg PO BID #180 ta bs 02/01/25 05/01/25 Rx release Allergy/AdvReac Type Severity Reaction Status Date / Time Penicillins Allergy Mild Nausea/Vom/ Verified 05/02/25 07:07 Diarrhea Surgical History H/O esophagogastroduodenoscopy Social History Smoking Status: Never smoker ROS Constitutional Constitutional: Denies fatigue, fever(s), poor appetite, weight gain or weight loss Gastrointestinal Gastrointestinal: Denies belching, bloating, change in bowel habits, change in stool character, chewing difficulty, coffee ground emesis, constipation, cramping, diarrhea, dyspepsia, dysphagia, early satiety, excessive flatus, fecal incontinence, heartburn, hematemesis, hematochezia, hemorrhoids, loose stools, melena, nausea, odynophagia, rectal bleeding, tenesmus, vomiting or weight changes Vital Signs Vital Signs Vital Signs: 05/02/25 07:08 05/02/25 07:08 05/02/25 07:08 Temperature 98.5 F Temperature Source Temporal Pulse Rate 70 Respiratory Rate 16 Respiratory Pattern Normal Blood Pressure 133/86 H Blood Pressure Mean 101 Blood Pressure Source Monitor Blood Pressure Position Sitting Blood Pressure Location Left Arm Baseline BP 133/86 Pulse Ox 100 Oxygen Delivery Method Room Air 05/02/25 07:43 Temperature 98.5 F Temperature Source Pulse Rate 70 Respiratory Rate 16 Respiratory Pattern Blood Pressure 133/86 H Blood Pressure Mean Blood Pressure Source Blood Pressure Position Blood Pressure Location Baseline BP Pulse Ox 100 Oxygen Delivery Method Room Air Weight Weight: 189 lb 9.561 oz Body Mass Index (BMI) 25.7 Physical Exam Const alert, oriented x3, no apparent distress and healthy appearing General Appearance: cooperative GI normal to inspection, nondistended, normoactive bowel sounds, soft to palpation, non-tender and non-distended Percussion: normal to percussion Rectal Exam: deferred Assessment & Plan Assessment/Plan (1) Eosinophilic esophagitis: (2) Dysphagia: PLAN: Assessment and Plan Assessment and Plan (1) Eosinophilic esophagitis: Status: Acute Orders: Referrals Allergy & Immunology Medications: New pantoprazole 40 mg PO BID 180 tabs 1RF Discontinued pantoprazole Discontinued Reason: Order Completed 20 mg PO DAILY 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 Biopsies confirmed 20 eosinophils/hpf. He has noted symptomatic relief post dilation but has been managing dysphagia with conservative dietary tactics. I have started him on pantoprazole 40mg BID and provided him a referral to Dr. Ramirez Amor. He will follow-up in three months for repeat EGD.]
--- NOTE | 2025-05-02 08:58 | PCM.POST.ANE ---
Anesthesia: Postop Eval I Current Vital Signs Temperature: 97.6 F Pulse Rate: 88 Blood Pressure: 118/82 Respiratory Rate: 16 Pulse Ox: 94 Oxygen Delivery Method: Room Air Assessment Airway patent: Yes Spontaneous unlabored respirations: Yes Mental status: Asleep nausea: No Vomiting: No Anesthesia Complication: No Fluid Hydration Crystalloid volume administer (ml): 400 Total IV fluid infused: 400 Progress Note Anesthesia document: Postop Eval 1 completed: Yes
--- NOTE | 2025-05-02 09:19 | OP.PROVAT_ITS ---
05/02/2025 No Primary Care Physician Re : Upper GI endoscopy procedure for Jose Edouard Dear Care Physician This procedure was performed on Friday, May 02, 2025. My impressions and recommendations are as follows: Impressions : - Esophageal mucosal changes secondary to eosinophilic esophagitis. - No gross lesions in the entire stomach. - No gross lesions in the entire examined duodenum. - Biopsies were taken with a cold forceps for evaluation of eosinophilic esophagitis. Recommendations : - Discharge patient to home. - Resume previous diet. - Continue present medications. - Await pathology results. - Patient needs to be started on Dupixent and budesonide liquid My findings are described in the full procedure note, which is enclosed. If I can be of further assistance, please feel free to contact me at . Sincerely, Mahin Friend, 05/02/2025 9:18:56 AM This report has been signed electronically.
--- NOTE | 2025-05-02 09:19 | OP.EGD_ITS ---
Patient Name: Jose Edouard Procedure Date: 05/02/2025 8:32 AM Date of : 1995 Age: 30 Procedure: Upper GI endoscopy Indications: Dysphagia Providers: Mahin Arteaga DO Referring MD: No Primary Care Physician Medicines: Monitored Anesthesia Care Patient Profile: This is a 30 year old male. Refer to note in patient chart for documentation of history and physical. Patient has symptoms of dysphagia with solids. His most recent EGD for Salazar's biopsy and EGD for dilation. Complications: No immediate complications. Procedure: Pre-Anesthesia Assessment: - Prior to the procedure, a History and Physical was performed, and patient medications and allergies were reviewed. The patient is competent. The risks and benefits of the procedure and the sedation options and risks were discussed with the patient. All questions were answered and informed consent was obtained. Patient identification and proposed procedure were verified by the physician in the pre-procedure area. Mental Status Examination: alert and oriented. Airway Examination: normal oropharyngeal airway and neck mobility. Respiratory Examination: clear to auscultation. CV Examination: normal. Prophylactic Antibiotics: The patient does not require prophylactic antibiotics. Prior Anticoagulants: The patient has taken no anticoagulant or antiplatelet agents except for NSAID medication. ASA Grade Assessment: II - A patient with mild systemic disease. After reviewing the risks and benefits, the patient was deemed in satisfactory condition to undergo the procedure. The anesthesia plan was to use monitored anesthesia care (MAC). Immediately prior to administration of medications, the patient was re-assessed for adequacy to receive sedatives. The heart rate, respiratory rate, oxygen saturations, blood pressure, adequacy of pulmonary ventilation, and response to care were monitored throughout the procedure. The physical status of the patient was re-assessed after the procedure. After obtaining informed consent, the endoscope was passed under direct vision. Throughout the procedure, the patient's blood pressure, pulse, and oxygen saturations were monitored continuously. The Endoscope was introduced through the mouth, and advanced to the second part of duodenum. The upper GI endoscopy was accomplished without difficulty. The patient tolerated the procedure well. Scope In: 8:41:05 AM Scope Out: 8:46:45 AM Total Procedure Duration Time 0 hours 5 minutes 40 seconds Findings: Mucosal changes including ringed esophagus, feline appearance, longitudinal furrows, small-caliber esophagus and white plaques were found in the entire esophagus. Esophageal findings were graded using the Eosinophilic Esophagitis Endoscopic Reference Score (EoE-EREFS) as: Edema Grade 1 Present (decreased clarity or absence of vascular markings), Rings Grade 2 Moderate (distinct rings that do not occlude passage of diagnostic 8-10 mm endoscope), Exudates Grade 1 Mild (scattered white lesions involving less than 10 percent of the esophageal surface area), Furrows Grade 2 Severe (vertical lines with clear depth) and Stricture present. Biopsies were obtained from the proximal and distal esophagus with cold forceps for histology of suspected eosinophilic esophagitis. Verification of patient identification for the specimen was done. Estimated blood loss was minimal. No gross lesions were noted in the entire examined stomach. No gross lesions were noted in the entire examined duodenum. Impression: - Esophageal mucosal changes secondary to eosinophilic esophagitis. - No gross lesions in the entire stomach. - No gross lesions in the entire examined duodenum. - Biopsies were taken with a cold forceps for evaluation of eosinophilic esophagitis. Recommendation: - Discharge patient to home. - Resume previous diet. - Continue present medications. - Await pathology results. - Patient needs to be started on Dupixent and budesonide liquid Procedure Code(s): --- Professional --- 34540, Esophagogastroduodenoscopy, flexible, transoral; with biopsy, single or multiple CPT copyright 2021 [employer]. All rights reserved. The codes documented in this report are preliminary and upon inpatient coder review may be revised to meet current compliance requirements. Mahin Arteaga DO 05/02/2025 9:18:56 AM This report has been signed electronically. Number of Addenda: 0 Note Initiated On: 05/02/2025 8:32 AM
--- NOTE | 2025-05-02 21:50 | PCM.POSTANE2 ---
Anesthesia Postop Eval I Sum Postop Eval Completion status Anesthesia document: Postop Eval 1 completed: Yes Anesthesia Postop Eval I Summary Anesthesia Postop Eval I Summary: Anesthesia Postop Eval I: Assessment Summary Airway patent Yes 05/02/25 08:58 [email or web address] Spontaneous unlabored Yes 05/02/25 08:58 [email or web address] respirations Mental status Asleep 05/02/25 08:58 [email or web address] nausea No 05/02/25 08:58 [email or web address] Vomiting No 05/02/25 08:58 [email or web address] Anesthesia Postop Eval I: Fluid Summary Crystalloid volume administer 400 05/02/25 08:58 [email or web address] (ml) Colloids volume administered ( ml) Blood Product volume administered (ml) Total IV fluid infused 400 05/02/25 08:58 [email or web address] Anesthesia Postop Eval I: Summary Notes Anesthesia Complication No 05/02/25 08:58 [email or web address] Anesthesia Complication Comment: Post-operative progress note Anesthesia: Postop Eval II Evaluation Mental status: Awake and Calm Pain Level: 0 nausea: No Vomiting: No Complications Anesthesia Complication: No
== END 2025-05-02 09:34 | disposition home or self-care (01) ==
LOC: EN 06:58 → AC 06:58
PROVIDERS: Visit Provider Internal Medicine Gastroenterology
PROC: 0DJ08ZZ Inspection of Upper Intestinal Tract, Via Natural or Artificial Opening Endoscopic (ICD-10-PCS; CPT 43235; principal; 2025-05-02 07:55)
DX: K20.0 Eosinophilic esophagitis (principal); R13.10 Dysphagia, unspecified; Z79.899 Other long term (current) drug therapy; J45.909 Unspecified asthma, uncomplicated
CPT/HCPCS: 43239; 88305; J2405